=== PATIENT | female | born 1980 | race Caucasian/White ===

== ENCOUNTER 2025-04-29 18:30 | Inpatient (IN) | payer BC, SELFPAY ==
[2025-04-29] VITALS (25 sets, daily range): BP systolic 143–179; BP diastolic 78–106; BMI 33.0
[2025-04-29 11:17] LABS: Glucose - Point of Care 89 mg/dl (70-99)
--- NOTE | 2025-04-29 11:18 | ED.CVA ---
History of Present Illness
<Naseem Grande PA-C - Last Filed: 04/29/25 12:19>
General
Chief Complaint: CVA/TIA Symptoms
Source: patient
Exam Limitations: none
Time Seen by Provider: 04/29/25 11:17
Onset of Stroke Symptoms
Onset of symptoms known: Yes
Date of onset of symptoms: 04/29/25
History of Present Illness
History of Present Illness:
44-year-old female weaning off of [employer] I[employer]. and recently started tours appetite presents with the onset of right facial droop at 1045 this morning. This was preceded by not feeling well and somewhat off or dizzy. There was no vision change. She
denies fevers rash or headache. She denies any arm or leg numbness or weakness. She states she was having trouble speaking. No associated dizziness. No chest pain or shortness of breath. No other complaints at this time. I was asked to see the
patient in triage with a right facial droop. Stroke alert was called through triage
Phy Exam
<Naseem Grande PA-C - Last Filed: 04/29/25 12:19>
Physical Exam
Physical Exam:
General: Well-appearing female no acute respiratory distress
HEENT: Normal cephalic face is asymmetric. There is a subtle facial droop. Pupils equal round react light extract motion intact
Heart: Regular rate and rhythm lungs: Clear no wheeze
Neurologic exam: Alert and oriented x 3 normal gait finger-nose intact no drift on exam. There is a subtle right facial droop however the patient is able to wrinkle both sides of the forehead. No aphasia or dysarthria. Good sensation to the upper
and lower extremities.
Skin is warm no rash
Extremities: No cyanosis or edema
Course
<Naseem Grande PA-C - Last Filed: 04/29/25 12:19>
Orders/Labs/Results
Orders:
Orders
10/28/25 11:09
CT HEAD STROKE ALERT W/o Cont Urgent
Comment:
Reason For Exam: facial droop
04/29/25 11:16
Cardiovascular Evaluation Urgent
Complete Blood Count/With Diff Urgent
Comprehensive Metabolic Panel Urgent
Ferritin Urgent
Comment: ADDON
Folate Urgent
Comment: ADDON
Glycohemoglobin (HgbA1c) Urgent
Lyme Progressive Urgent
Magnesium Urgent
Comment: ADD ON
TSH Reflex To Free T4 Urgent
Comment: ADDON
Vitamin B12 Urgent
Comment: ADDON
04/29/25 11:22
CT HEAD/NECK ANG STROKE ALERT Urgent
Comment:
Reason For Exam: right facial droop
04/29/25 11:25
Electrocardiogram (*1) Urgent
Reason for Study: TIA/Stroke
EKG- Treatment ONCE
04/29/25 11:39
Add On- LAB Routine
Tests Added?: folate, ferritin, TSH reflex, B12, lipid panel, hbA1c
04/29/25 12:16
Aspirin 325 mg PO NOW STA
Clopidogrel Bisulfate [Plavix] 300 mg PO NOW STA
04/29/25 13:11
Admit/Transfer Patient As Directed
Co-Sign Provider:
Level of Care: Inpatient admission
Assign to:: Telemetry
Physician / Group: nay aparicio
Diagnosis: acute left frontal cva
Reason for Telemetry: CVA/TIA
Date to Stop Telemetry: 05/02/25
Time to Stop Telemetry: 11:00
Reason for Hospitalization: right facial numbness, htn urgency concern cva vs htn
Expected length of stay greater than two midnights?: Yes
ELOS- Estimated Length of Stay in days: 3
I certify the patient meets the requirements for IP care: Yes
Code Status As Directed
Resuscitation Status: Full Code
04/29/25 13:13
PRN Pain Medication Management As Directed
May give lesser potent ordered pain med per pt: Yes
preference::
Protocol:: Medication orders for pain may be administered in a
manner that supports deferring to patient preference
when the pt is:
- Requesting an ordered lesser potent pain medication.
Least to most potent pain medications are defined
as: acetaminophen < NSAID < tramadol < opioids
(morphine, oxycodone, hydromorphone).
- Requesting a lesser dose of the same medication IF
ORDERED.
- Requesting a less intrusive route of administration
if both routes are prescribed by the provider (PO <
IV).
04/29/25 13:14
Add On- LAB Urgent
Tests Added?: mag
Consult Neurology [NEUROLOGY CONSULT] Routine
Consulting Provider: Pranav Jacinto
Was physician already notified: Yes
Reason for consult: right facial numbness droop htn urgency
Acetaminophen [Tylenol] 1,000 mg PO NOW STA
04/29/25 14:24
MRI Brain [MR Brain Without Contrast] Urgent
Comment:
Reason For Exam: cva/tia
OK for patient to be off Cardiac Monitoring for MRI: Yes
Recent pill cam endoscopy?: No
04/29/25 Dinner
Regular
At Your Request: Full Participation
04/29/25 18:51
Activity As Directed
Activity Level: As Tolerated
Neurological Checks As Directed
Frequency: q4h
Pneumatic Compression Sleeves As Directed
Type: Knee high
Vital Signs As Directed
Frequency: Per unit guidelines
Pt Eval And Treat Routine
Activity Level: As Tolerated
Speech Therapy Eval & Treat Routine
DX Deep Vein Thrombosis Video Routine
04/29/25 19:00
Atorvastatin [Lipitor] 40 mg PO QPM
04/29/25 21:00
Acetaminophen [Tylenol] 650 mg PO Q4HPRN PRN
04/30/25 08:00
Aspirin Low Dose EC [Aspir Low (Enteric Coated)] 81 mg PO DAILY
Cholecalciferol (Vitamin D3) [VITAMIN D3 (cholecalciferol)] 25 mcg PO DAILY
Clopidogrel Bisulfate [Plavix] 75 mg PO DAILY
Duloxetine Delayed Release [Cymbalta Delayed Release] 30 mg PO DAILY
Multivitamin [Theragran] 1 tablet PO DAILY
Vitamin B Complex with C [B COMPLEX w/VITAMIN C] 1 caplet PO DAILY
05/02/25 11:00
DC Protocol for Telemetry ONCE
Abnormal Lab Results
04/29/25
11:16
MCHC 32.5 L g/dL
(33.0-37.0)
Monocytes % 9.7 H %
(1.7-9.3)
Total Cholesterol 206 H mg/dl
(50-199)
Folate > 20.0 H ng/ml
(2.76-20)
04/29/25 11:16
04/29/25 11:16
Vital Signs
Initial and Last Documented VS:
Initial Vital Signs
BP
179/93
04/29/25 11:12
Last Documented Vital Signs
Temp Pulse Resp BP Pulse Ox
98.5 F 91 17 125/91 99
05/01/25 07:00 05/01/25 08:02 05/01/25 07:00 05/01/25 08:02 05/01/25 07:00
<Lexi Woodward MD - Last Filed: 05/01/25 11:14>
Orders/Labs/Results
Orders:
Orders
04/29/25 11:09
CT HEAD STROKE ALERT W/o Cont Urgent
Comment:
Reason For Exam: facial droop
04/29/25 11:16
Cardiovascular Evaluation Urgent
Complete Blood Count/With Diff Urgent
Comprehensive Metabolic Panel Urgent
Ferritin Urgent
Comment: ADDON
Folate Urgent
Comment: ADDON
Glycohemoglobin (HgbA1c) Urgent
Lyme Progressive Urgent
Magnesium Urgent
Comment: ADD ON
TSH Reflex To Free T4 Urgent
Comment: ADDON
Vitamin B12 Urgent
Comment: ADDON
04/29/25 11:22
CT HEAD/NECK ANG STROKE ALERT Urgent
Comment:
Reason For Exam: right facial droop
04/29/25 11:25
Electrocardiogram (*1) Urgent
Reason for Study: TIA/Stroke
EKG- Treatment ONCE
04/29/25 11:39
Add On- LAB Routine
Tests Added?: folate, ferritin, TSH reflex, B12, lipid panel, hbA1c
04/29/25 12:16
Aspirin 325 mg PO NOW STA
Clopidogrel Bisulfate [Plavix] 300 mg PO NOW STA
04/29/25 13:11
Admit/Transfer Patient As Directed
Co-Sign Provider:
Level of Care: Inpatient admission
Assign to:: Telemetry
Physician / Group: nay aparicio
Diagnosis: acute left frontal cva
Reason for Telemetry: CVA/TIA
Date to Stop Telemetry: 05/02/25
Time to Stop Telemetry: 11:00
Reason for Hospitalization: right facial numbness, htn urgency concern cva vs htn
Expected length of stay greater than two midnights?: Yes
ELOS- Estimated Length of Stay in days: 3
I certify the patient meets the requirements for IP care: Yes
Code Status As Directed
Resuscitation Status: Full Code
04/29/25 13:13
PRN Pain Medication Management As Directed
May give lesser potent ordered pain med per pt: Yes
preference::
Protocol:: Medication orders for pain may be administered in a
manner that supports deferring to patient preference
when the pt is:
- Requesting an ordered lesser potent pain medication.
Least to most potent pain medications are defined
as: acetaminophen < NSAID < tramadol < opioids
(morphine, oxycodone, hydromorphone).
- Requesting a lesser dose of the same medication IF
ORDERED.
- Requesting a less intrusive route of administration
if both routes are prescribed by the provider (PO <
IV).
04/29/25 13:14
Add On- LAB Urgent
Tests Added?: mag
Consult Neurology [NEUROLOGY CONSULT] Routine
Consulting Provider: Pranav Jacinto
Was physician already notified: Yes
Reason for consult: right facial numbness droop htn urgency
Acetaminophen [Tylenol] 1,000 mg PO NOW STA
04/29/25 14:24
MRI Brain [MR Brain Without Contrast] Urgent
Comment:
Reason For Exam: cva/tia
OK for patient to be off Cardiac Monitoring for MRI: Yes
Recent pill cam endoscopy?: No
04/29/25 Dinner
Regular
At Your Request: Full Participation
04/29/25 18:51
Activity As Directed
Activity Level: As Tolerated
Neurological Checks As Directed
Frequency: q4h
Pneumatic Compression Sleeves As Directed
Type: Knee high
Vital Signs As Directed
Frequency: Per unit guidelines
Pt Eval And Treat Routine
Activity Level: As Tolerated
Speech Therapy Eval & Treat Routine
DX Deep Vein Thrombosis Video Routine
04/29/25 19:00
Atorvastatin [Lipitor] 40 mg PO QPM
04/29/25 21:00
Acetaminophen [Tylenol] 650 mg PO Q4HPRN PRN
04/30/25 08:00
Aspirin Low Dose EC [Aspir Low (Enteric Coated)] 81 mg PO DAILY
Cholecalciferol (Vitamin D3) [VITAMIN D3 (cholecalciferol)] 25 mcg PO DAILY
Clopidogrel Bisulfate [Plavix] 75 mg PO DAILY
Duloxetine Delayed Release [Cymbalta Delayed Release] 30 mg PO DAILY
Multivitamin [Theragran] 1 tablet PO DAILY
Vitamin B Complex with C [B COMPLEX w/VITAMIN C] 1 caplet PO DAILY
05/02/25 11:00
DC Protocol for Telemetry ONCE
Abnormal Lab Results
04/29/25
11:16
MCHC 32.5 L g/dL
(33.0-37.0)
Monocytes % 9.7 H %
(1.7-9.3)
Total Cholesterol 206 H mg/dl
(50-199)
Folate > 20.0 H ng/ml
(2.76-20)
04/29/25 11:16
04/29/25 11:16
Vital Signs
Initial and Last Documented VS:
Initial Vital Signs
BP
179/93
04/29/25 11:12
Last Documented Vital Signs
Temp Pulse Resp BP Pulse Ox
98.5 F 91 17 125/91 99
05/01/25 07:00 05/01/25 08:02 05/01/25 07:00 05/01/25 08:02 05/01/25 07:00
<Naseem Grande PA-C - Last Filed: 04/29/25 12:19>
MDM/Problems Addressed
Differential Diagnosis Includes:
Patient presented with right facial droop onset at 1045 this morning. Question TIA versus CVA versus Prince's palsy however not enough on my exam to call Rpince's palsy. Stroke alert called through triage. Reassessed patient in room facial droop
persisted. No blood thinners onset about 35 minutes ago however stroke scale at this point is low and 1 and likely not a TNK candidate. Discussed with emergency room attending. CT angio of the head and neck as well as plain CT of the head was
ordered
<Naseem Grande PA-C - Last Filed: 04/29/25 12:19>
*Pulse Oximetry
SaO2: 98
Oxygen Mode of Delivery: Room air
Patient hypoxic: no
*Critical Care Note
Total Time (30-74mins, 75-104mins- exclusive of procedures): Not Applicable
<Naseem Grande PA-C - Last Filed: 04/29/25 12:19>
Update Note
Update Note:
Patient seen and evaluated by the neurology team. Head CT was negative CT angio of the head and neck was added. Still with persistent right facial droop but no other deficits. Discussed with emergency room attending saw the patient as well.
Neurology recommended admitting the patient for further stroke workup as well as do antiplatelet therapy. Plavix and aspirin ordered. Hospitalist made aware
ED Attending Note
<Naseem Grande PA-C - Last Filed: 04/29/25 12:19>
-
Portions of this chart may have been created with voice recognition software.� Occasional wrong word or��sound alike� substitutions may have occurred due to the inherent limitations of voice recognition software.
<Lexi Woodward MD - Last Filed: 05/01/25 11:14>
ED Attending Note
Patient seen and examined by attending physician: Yes
I performed the substantive portion of visit, reviewed & personally made and approve the management plan that is documented in note by myself or PENELOPE.: Yes
ED Attending Note:
44-year-old female presents emergency department with right-sided facial droop that started approximately 1040 or 10:45 AM today. This is not associated with numbness, tingling, chest pain, neck pain, abdominal pain, focal weakness, visual changes,
or other complaints. On exam, patient has a mild facial droop without associated neurological symptoms. NIH equal to 1. Patient is not a TNK candidate given her low NIH score, nor is she a IAT candidate at this time. Patient seen with neurology
at the bedside. 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 Given upper face not affected Prince's palsy thought to be less likely.
Discharge Plan
Departure
Patient Disposition: Admit
Date of Disposition: 04/29/25
Time of Disposition: 12:19
Presentation/result/management discussed w/ accepting MD/DO: Hospitalist
Discharge Problem:
Acute right facial droop
Interventions
Interventions:
*Risk Screen - Suicide Last Done: 04/29/25 11:15
*General Assessment Last Done: 04/29/25 11:55
*Neglect/Abuse Screening Last Done: 04/29/25 11:15
*ED- Fall Risk Assessment Last Done: 04/29/25 11:55
*ED COVID-19 Vaccine History Last Done: 04/29/25 11:22
*ED Influenza Vaccine History Last Done: 04/29/25 11:22
*Nursing Disposition Last Done: 04/29/25 18:23
ED- Pulmonary Assessment Last Done: 04/29/25 11:54
ED- Neurological Assessment Last Done: 04/29/25 11:54
ED- Cardiac Assessment Last Done: 04/29/25 11:54
ED Swallowing Screen Last Done: 04/29/25 12:25
Discharge Date and Time
Discharge Date/Time: 04/29/25 18:23
[2025-04-29 11:27] LABS: Hematocrit 40.0 % (37.0-47.0); Hemoglobin 13.0 g/dL (12.0-16.0); Mean Corp Hgb Conc. 32.5 g/dL (33.0-37.0); Mean Corpuscular Volume 91.3 fL (81.0-99.0); Nucleated Red Blood Cells % 0 %; Platelet Count 290 10^3/uL (130-400); Red Cell Dist. Width 12.2 % (11.5-14.5)
--- NOTE | 2025-04-29 11:31 | CON.NEURO4 ---
Addendum entered and electronically signed by Pranav Jacinto MD 04/29/25 19:08:
I saw and examined the patient today. I also discussed the patient's assessment and the management plan with nurse practitioner Halina Foley. I agree with the assessment and the management plan by nurse practitioner Halina Foley. The
following is my addendum.
The patient is a 44 years old female with a past medical history of migraine with aura, hypertension which was untreated and anxiety, who presented to the ER with complaint of right-sided facial droop, right-sided facial numbness and headache. The
patient has a history of migraines. The patient's symptoms started at around 10:40 AM today and she complained of a facial droop on the right side and numbness of the right side of the mouth. The NIH stroke scale was 2. She reports having a 6/10
headache on the top of her head radiating down the back of her head.
Neurologic Examination:
The patient is alert and oriented x 3,
Speech is clear,
The cranial nerves II to XII are grossly intact aside from a mild right-sided facial droop,
The motor strength is grossly 5/5 bilaterally in the upper and lower extremities,
The sensations are grossly intact bilaterally in the upper and lower extremities except for a mildly decreased touch sensation in the right lower side of the face.
The cerebellar examination did not show any limb ataxia.
ASSESSMENT AND PLAN:
The patient is a 44 years old female who presented with right-sided facial droop and numbness of the right side of the lower face. The patient did not have any speech difficulty and focal numbness or weakness of the bilateral upper and lower
extremities. The CT of the head did not show any acute intracranial abnormality. The CTA of head and neck did not show a large vessel occlusion. She is not a candidate for TNK due to low NIHSS, and she is also not a candidate for IAT as there is no
LVO. She reports having a 6/10 headache on the top of her head radiating down the back of her head.
A detailed discussion was held with the patient and the patient's regarding the assessment and the management plan, and they verbalized understanding of our discussion. The patient and her refused TNK administration due to minor and
nondisabling symptoms.
MRI of the brain was done later that showed a 1.4 cm acute ischemic infarct in the posterior cortical bates matter of the left frontal lobe.
The report of the MRI of brain was discussed with the patient and her in detail and the patient was re-examined. On re-examination, the right-sided facial droop and right-sided facial numbness had resolved, and the patient said that she
does not have any symptom at this time.
The plan is to keep the patient on the stroke pathway. The patient was given a loading dose of aspirin 325 mg x 1 and Plavix 300 mg x 1. She is going to be on aspirin 81 mg daily and Plavix 75 mg daily. She was not on any antiplatelets at home
and the plan is to stop Plavix after 21 days and to continue with aspirin. She will also be on atorvastatin 40 mg daily.
Will follow.
Original Note:
Consultation - Neurology 4
-
CONSULTING PHYSICIAN: Pranav Jacinto MD
REFERRING PHYSICIAN: ER/Naseem Grande PA-C
DICTATED BY: OSVALDO Sousa
DATE/TIME OF REQUEST: 04/29/25
DATE/TIME OF CONSULTATION: 04/29/25
Reason for Consultation: Stroke Alert
History of Present Illness:
This is a 44-year-old female who has presented to the hospital with report of right facial numbness, right facial drooping, and headache. Patient reports that she was on duloxetine for about a year and about three weeks ago she started weaning off
of it. This morning (04/29/25), she reports feeling in her usual state but did feel mildly dizzy. Around 1040 she notes that the right side of her mouth started tingling and her right mouth appeared droopy, prompting her to come to the ER for
evaluation. Blood pressure on arrival was 165/100. CT head and CTA head/neck were obtained on arrival and are negative for any acute abnormalities. NIHSS is 2 for mild right mouth drooping and R facial paresthesias. She is not a candidate for
TNK/IAT due to low NIHSS, no LVO. She reports having a 6/10 headache on the top of her head radiating down the back of her head. She denies nausea and photo/phonophobia. She reports a significant history of migraine headaches associated with visual
aura, but her current headache does not feel like her typical headache. She denies any stroke symptoms with her previous headaches. She is not taking any estrogen supplements or hormonal control.
Past Medical History: Migraine with aura, iron deficiency anemia, preeclampsia, anxiety
Surgical History: Gastric bypass, breast implants, hernia repair, eye surgery.
Family History: Grandmother- stroke in an older decade of life.
Social History: Denies tobacco, alcohol, and illicit drug use.
Allergies: Penicillins, vancomycin.
Home Medications: See below.
Review of Symptoms:
Patient denies any fever, headache, chest pain, shortness of breath, GI or symptoms.
�Per the HPI.�All systems are reviewed negative except above.
Physical Exam:
The patient is afebrile, abdomen is nondistended, breathing is unlabored, skin is warm and dry, no edema.
NIH Stroke Scale:
I performed the NIH stroke scale on the patient on 04/29/25 at 1100. The patient scored 2 points on the NIH stroke scale assessment, which were assigned as follows: See below.
Neurologic Examination:
The patient is awake, alert and oriented x 3. She is able to follow commands and answer questions appropriately. There is no aphasia or dysarthria. On cranial nerve assessment, pupils are 3 mm bilateral, round and reactive to light and
accommodation. Visual abel are full. Extraocular movements are intact. There is mild right mouth drooping. Hearing is intact bilaterally to normal conversation volume. Tongue palate and uvula are midline. Sternocleidomastoid strengths are full
bilaterally. Motor strengths are 5/5 bilateral upper and lower extremities on medical research Drummonds scale. There is no drift or involuntary movement noted. Sensations of touch are mildly decreased in the right lower face. There was no extinction
noted on double simultaneous stimulation. Coordination is intact by finger to nose bilaterally.
Lab Results: See below.
Neuro Imaging:
1. CT Head 04/29/25: No acute intracranial abnormality. ASPECT score: 10.
2. CTA head/neck 04/29/25: No demonstrable carotid arterial atherosclerosis/stenosis bilaterally. No findings to suggest internal carotid artery or vertebral artery dissection bilaterally. Vertebral arteries are approximately codominant. No findings
to suggest proximal intracranial arterial stenosis or vessel cut off bilaterally.
Differentials for the patient's presentation include:
1. Right mouth drooping and right facial paresthesias; etiology is possibly a complex migraine given current headache, versus anxiety, hypertension, and cannot entirely exclude a small ischemic stroke.
Patient has the following risk factors for their symptoms: HTN, anxiety, migraine with aura
IV Tenecteplase/IAT candidacy: NIHSS is 2 for mild right mouth drooping and R facial paresthesias. She is not a candidate for TNK/IAT due to low NIHSS, no LVO.
Recommendations:
-Provide a loading dose of aspirin 325mg and clopidogrel 300mg x1. Continue DAPT with aspirin 81mg and clopidogrel 75mg daily for now.
-MRI brain noncontrast pending.
-Permissive hypertension SBP<220, DBP<120 until 04/30/25 at 1040.
-Checking blood work for metabolic abnormalities.
-NIHSS and neurological checks per unit guidelines.
-Provide patient/family with a stroke education packet.
-DVT prophylaxis.
Discussed patient care with: Dr. Jacinto, the patient, patient's spouse
Vital Signs and Labs
-
Vital Signs and Labs:
Vital Signs
Temp Pulse Resp BP Pulse Ox
98 F 105 18 156/100 99
04/29/25 11:15 04/29/25 11:45 04/29/25 11:45 04/29/25 12:31 04/29/25 12:31
Lab Results
04/29/25 11:16
04/29/25 11:16
Sodium 135 mmol/L (135-145) 04/29/25 11:16
Potassium 4.4 mmol/L (3.5-5.1) 04/29/25 11:16
BUN 11 mg/dl (7-17) 04/29/25 11:16
Glucose 92 mg/dl (70-99) 04/29/25 11:16
Calcium 9.2 mg/dl (8.4-10.2) 04/29/25 11:16
LDL Cholesterol, Calc 100 mg/dl 04/29/25 11:16
Medications
-
Home Medications
�Medication �Instructions �Recorded
cholecalciferol (vitamin D3) 25 25 mcg PO DAILY Supplement 04/29/25
mcg (1,000 unit) tablet (Vitamin
D3)
nerryzhjon-wvyvojtmgrrpwee-buitccgcuhqlqidf-acetaminophen 1 cap PO HSPRN PRN sleep 04/29/25
capsule
duloxetine 30 mg capsule,delayed 30 mg PO DAILY Mental 04/29/25
release Health/Anxiety
ibuprofen 200 mg tablet (Advil) 400 mg PO Q8HPRN PRN mild pain 04/29/25
therapeutic multivitamin 1 tab PO DAILY Supplement 04/29/25
vitamin B complex 1 tab PO DAILY Supplement 04/29/25
NIH Stroke Score
Subsequent NIH Scale
Date of Subsequent NIH Scale: 04/29/25
Time of Subsequent NIH Scale: 11:00
NIH Stroke Score
Level of Consciousness: 0 - Alert
LOC Questions: 0-Answers both correctly
LOC Commands: 0-Performs both correctly
Best Horizontal Gaze: 0-Normal
Visual Abel: 0=Normal, no visual loss
Facial Palsy: 1=Minor paralysis
Motor - Right Arm: 0=No drift 10 seconds
Motor - Left Arm: 0=No drift 10 seconds
Motor - Right Le-No drift 5 seconds
Motor - Left Le-No drift 5 seconds
Limb Ataxia: 0-Absent
Sensation: 1-Mild loss
Best Language: 0-No aphasia
Dysarthria: 0-Normal
Extinction and Inattention: 0-No abnormality
NIH Total Score:: 2
Modified [place] (mRS) Score
Modified [place] Scale (mRS): No significant disability. Able to carry out usual activities.
Score: 1
Alteplase Contraindication
Inclusion and Exclusion criteria reviewed: Yes
IAT Contraindications: Imaging doesn't show large vessel occlusion as cause of stroke
[2025-04-29 11:54] LABS: ALT (SGPT) 31 U/L (0-35); AST (SGOT) 33 U/L (14-36); Albumin 4.9 g/dl (3.5-5.0); Alkaline Phosphatase 44 U/L (38-126); Blood Urea Nitrogen 11 mg/dl (7-17); Calcium 9.2 mg/dl (8.4-10.2); Carbon Dioxide 25 mmol/L (22-30); Chloride 101 mmol/L (98-107); Glucose 92 mg/dl (70-99); Potassium 4.4 mmol/L (3.5-5.1); Sodium 135 mmol/L (135-145); Total Protein 7.9 g/dl (6.3-8.2); eGFR > 60.00
--- NOTE | 2025-04-29 12:21 | W.PN.UPDATE ---
Addendum entered and electronically signed by Mehul Dubose MD 04/30/25 08:15:
04/29/25 Urgent Brain MRI
1. 1.4 cm ACUTE ISCHEMIC INFARCT in the posterior cortical bates matter of the LEFT FRONTAL LOBE.
2. Mild white matter disease in the parietal lobes and minimal white matter disease in the frontal lobes which is most likely white matter leukoaraiosis or the sequela of migraine headaches. Vasculitis, connective tissue disease, Lyme disease, or
demyelinating disease are less likely diagnostic possibilities.
Case d/w Patient and , [employer]
Await Neuro consult for further w/u
c/w DAPL
Original Note:
Update Note
Progress Note Update
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
[place]
HPI
44F weaning off of Cymbalta and recently started tours appetite seen at ER
- straoke alert
- new onset of R facial droop at 1045 this morning
- was preceded by not feeling well and somewhat off or dizzy.
- no vision change.
- denies fevers rash or headache.
- denies any arm or leg numbness or weakness.
- states she was having trouble speaking.
ROS
- No associated dizziness. No chest pain or shortness of breath. No other complaints at this time.
- Stroke alert was called through triage
- Denied tick bite
Relevant VS
04/29/25
11:15
Temp 98 F
Pulse 108
Resp Rate 16
Blood pressure 155/78
SaO2 98
Oxygen Mode of Delivery Room air
PE
Gen: NAD
HEENT: subtle Lt facial droop. Nl speech. Able to wrinkle both sides of the forehead.
Neck: supple
Lungs: CTA
Cor: RRR S1 s2
Abdomen:�benign
SOCK LINING EXAMINER:
Nl speech. Able to wrinkle both sides of the forehead
No aphasia or dysarthria. Good sensation to the upper and lower extremities.
MS: no edema
Relevant Data
04/29/25
11:16
WBC 6.0
Hgb 13.0
Plt Count 290
Sodium 135
Potassium 4.4
Creatinine 0.6
eGFR > 60.00
Hemoglobin A1c Pending
Ferritin Pending
Albumin 4.9
LDL Cholesterol, Calc Pending
EKG
NORMAL SINUS RHYTHM
RIGHT AXIS DEVIATION
LOW VOLTAGE QRS
ABNORMAL ECG
WHEN COMPARED WITH ECG OF 25-Mar-2023 16:28,
QRS AXIS SHIFTED RIGHT
NONSPECIFIC T WAVE ABNORMALITY NOW EVIDENT IN INFERIOR LEADS
T WAVE INVERSION NOW EVIDENT IN LATERAL LEADS
HCT
No acute intracranial abnormality.
H & N CTA
No demonstrable carotid arterial atherosclerosis/stenosis bilaterally.
No findings to suggest internal carotid artery or vertebral artery dissection bilaterally. Vertebral arteries are approximately codominant.
No findings to suggest proximal intracranial arterial stenosis or vessel cut off bilaterally.
NO PRIOR hospitalist admission:
ASSESSMENT & PLAN
Stroke alert for sudden onset subtle Lt facial droop - DDX: TIA/CVA vs. Prince's palsy
- onset: 10:45 today.
- Called stroke alert through triage
- NEG HCT. NEG H & N CTA
- start DAPT and cont.
- Brain MRI
- A1C, Lipids
- Neurologist consult
Borderline elevated BP
HX Essential HTN
- permissive BP while w/u for TIA/CVA
- IV Hydralazine PRN if SBP> 220 , DBP > 110
- OP FU BP with PCP
Recent HX allergic rash reactions to Wellbutrin indicated for Wt loss
Obesity
- stopped Wellbutrin and teated with systemic and topical steroids
- resolved diffuse rash with Steroids
DVT Px: SCD
Full code
OBS TLM
--- NOTE | 2025-04-29 12:28 | HPS.HSE ---
Family Physician
-
Family Physician: Eulalio Pritchett
Chief Complaint
-
Headache, reported right-sided facial droop with numbness, hypertension
History of Present Illness
44-year-old female states at 1040 this a.m. she was helping her daughter get off of a toilet over at her friend's house she started to feel a thick fullness in the right corner of her mouth as if it was swollen but was not. She also reports daily
chronic headaches had headache this a.m. and currently frontal head radiating straight to the back. She appears to have left side facial droop although reports symptoms in the right corner of her mouth. She also complains of occasional dizziness
she denies blurred vision, chest pain, palpitations, cough, shortness of breath, abdominal pain, nausea, vomiting, diarrhea, urinary symptoms, tick bites. She recently came off of steroids 2 weeks ago due to hives from Wellbutrin. She is noted to
be hypertensive in the ER 162/100 with history of borderline hypertension at PCP office 130 systolic that has always come down. There is no family history of strokes however strong family history of hypertension maternal/paternal grandparents,
mother, father. She is only child
She has past medical history iron deficiency anemia, gastric bypass, anxiety, daily headaches
Medical History
Past Medical History
Past Medical History: Reports Other
Additional Past Medical History:
iron deficiency anemia
gastric bypass
anxiety
daily headaches
Past Surgical History: Reports Other
Additional Past Surgical History:
Hernia repair 2011
Breast implants 2011
Eye surgery 2016
Social History
Tobacco: Non-smoker
Alcohol: None
Drug: None
Personal:
Living: With Family
Employment: Employed ([id number] mom)
Family History
Family History: Other (Hypertension mother, father, maternal grandparents, paternal grandparents)
Allergies / Home Medications
Allergies reflects when Allergies were last updated in [facility].
Home Medications with original date entered in [facility]
Allergy/Medication List:
Allergies
Allergy/AdvReac Type Severity Reaction Status Date / Time
bupropion (From Wellbutrin) Allergy Intermediate Rash Verified 04/29/25 12:21
Penicillins Allergy Intermediate Hives Verified 04/29/25 11:15
vancomycin Allergy Unknown Unknown Verified 04/29/25 11:15
Home Medications
cholecalciferol (vitamin D3) 25 mcg (1,000 unit) tablet (Vitamin D3) 25 mcg PO DAILY Supplement 04/29/25
rfympdssde-cytbrshufkwrxrb-woszlufzbycezxpt-acetaminophen capsule 1 cap PO HSPRN PRN sleep 04/29/25
duloxetine 30 mg capsule,delayed release 30 mg PO DAILY Mental Health/Anxiety 04/29/25
ibuprofen 200 mg tablet (Advil) 400 mg PO Q8HPRN PRN mild pain 04/29/25
therapeutic multivitamin 1 tab PO DAILY Supplement 04/29/25
vitamin B complex 1 tab PO DAILY Supplement 04/29/25
Review of Systems
-
History Source: Patient and Family ( at bedside)
A 12 point ROS was completed and negative except as noted: Yes
Constitutional: Denies Fever, Fatigue or Chills
EENT: Reports Other (Reported tingling, fullness right corner of mouth however on exam appears to have left corner mouth drooping); Denies Sore Throat or Runny Nose
Respiratory: Denies Cough, Hemoptysis or Trouble Breathing
Cardiac: Denies Chest Pain, Diaphoresis or Palpitations
Abdomen/GI: Denies Abdominal Pain, Nausea, Vomiting, Diarrhea, Constipated or Bloody Stools
: Denies Dysuria, Frequency, Flank Pain, Incontinence, Difficulty Voiding or Urgency
Musculoskeletal: Denies Joint Pain or Edema
Skin: Denies Itching or Rash
Neurological: Reports Dizzy (On and off) and Headache (Frontal towards back); Denies Weakness
Endocrine: Reports No Symptoms
Hematologic/Lymphatic: Reports No Symptoms
Psych: Reports Calm
Physical Exam
Vital Signs
Vital Signs
Temp Pulse Resp BP Pulse Ox
98 F 96 20 155/78 97
04/29/25 11:15 04/29/25 11:18 04/29/25 11:18 04/29/25 11:15 04/29/25 11:54
Physical Exam
General: No Fever or Chills
HEENT: NormoCephalic, Anicteric, Moist mucous membranes, PERRLA, [place] Conjunctivae, No Ptosis, Neck Nontender and Other (Reported tingling, fullness right corner of mouth however on exam appears to have left corner mouth drooping)
Respiratory: Clear; No Wheezes, Rales or Rhonchi
Cardiac: S1/S2 and Regular Rhythm; No Murmur, Rub, Gallop or Peripheral Edema
Breast: Deferred by me
GI: Soft, Non Tender, Non Distended, Normal Bowel Sounds and No Hepatosplenomegaly
Rectal: Deferred by Provider
Genito-urinary: Deferred by me
Musculoskeletal: No Clubbing, No Cyanosis and No Edema
Skin: Warm and Dry; No Rash or Jaundice
Neuro: AO x 3, No Motor Deficits, Nonfocal/grossly intact, Cranial Nerves Intact, No Sensory Deficits and Facial Droop (Subtle left-sided corner of); No Slurred Speech, Tremors or Sedated
Psych: Calm
Laboratory Results
-
04/29/25 11:16
04/29/25 11:16
Laboratory Results
Total Bilirubin 0.8 mg/dl (0.2-1.3) 04/29/25 11:16
AST 33 U/L (14-36) 04/29/25 11:16
ALT 31 U/L (0-35) 04/29/25 11:16
Alkaline Phosphatase 44 U/L (38-126) 04/29/25 11:16
Impression/Plan
-
Impression/plan:
Observation telemetry
#Right facial droop concerning for CVA/TIA versus hypertensive urgency
Symptoms started 1030 this a.m. on 04/29/2025
BP 162/100
- Consult neurology
- MRI brain
- Aspirin 325 given in ER continue aspirin 81 mg daily
- Plavix 300 mg now, Plavix 75 mg x 21 days
- Check HgbA1c, lipid profile
Lyme, B12-
-Will allow permissive hypertension x 24 hours
- PT/OT/speech/case management consult
Head and neck CTA: No carotid arterial atherosclerosis/stenosis bilaterally no internal carotid or vertebral artery dissection no intracranial arterial stenosis or vessel cutoff bilaterally
EKG: NSR 88 bpm, QTc 452 MS T wave abnormality inferior leads and lateral leads T wave inversion(leads I and aVL)
#History chronic daily headaches x 15 years
Patient has not been treated by PCP
Takes occasional Advil 400 mg last dose was 11 PM yesterday 04/28/2025
- Advised patient to follow-up with PCP for migraine treatment given she has daily headaches
#Iron deficiency anemia
Hgb 13, MCV 91.3
#History of gastric bypass 2009
#Anxiety
Continue duloxetine 30 mg daily
DVT prophylaxis
SCDs
Full code
[2025-04-29 12:29] LABS: HDL Cholesterol 84 mg/dl; LDL Cholesterol, Calculated 100 mg/dl; Very Low Density Lipoprotein 22 mg/dl (0-30)
[2025-04-29] MEDS: ASPIRIN 325 MG PO (12:29)
[2025-04-29] MEDS: PLAVIX 300 MG PO (12:29)
[2025-04-29 12:58] LABS: Glycohemoglobin (HgbA1c) 5.4 % (4.0-5.9)
[2025-04-29 13:05] LABS: Ferritin 20.9 ng/ml (6.24-137)
[2025-04-29] MEDS: TYLENOL 1000 MG PO (13:28)
[2025-04-29 13:36] LABS: Folate > 20.0 ng/ml (2.76-20); Vitamin B12 376 pg/ml (239-931)
[2025-04-29 13:47] LABS: Magnesium 2.1 mg/dl (1.6-2.3)
--- NOTE | 2025-04-29 14:30 | EDCM ---
CM reviewed chart and spoke with patient and her Aric
CM attempted to do IA and review OBS status but got upset about OBS status vs inpatient status
He stated that 'unless you guys admit her under inpatient status, I am taking her home'
CM spoke with Mehul Chen and DANIELLA. Lori Acosta about 's concern
Dr. Dubose, DANIELLA Sandoval and SERGIO spoke with at patient's bedside
Dr. Dubose stated that LOC is OBS and it cannot be changed at this time.
stated 'it is all of your scam. YOU NEED TO HAVE MRI DONE NOW' Declined to sign OBS form
CM unable to completed IA at this time.
, SERGIO and ED charge nurse Maranda discussed that is agreeable with MRI of brain
CM will continue to discuss dcp needs when able.
--- NOTE | 2025-04-29 18:53 | PTCARENOTE ---
pt arrived to unit via w/c from ER. denies complaints, left facial droop resolved, independent, vss, will continue to monitor.
[2025-04-29] MEDS: LIPITOR 40 MG PO (20:16)
[2025-04-29] MEDS: TYLENOL 650 MG PO (22:03)
[2025-04-30 03:00] VITALS: BP 148/86
[2025-04-30 07:00] VITALS: BP 144/87
[2025-04-30] MEDS: VITAMIN D3 (cholecalciferol) 25 MCG PO (07:28)
[2025-04-30] MEDS: CYMBALTA DELAYED RELEASE 30 MG PO (07:28)
[2025-04-30] MEDS: PLAVIX 75 MG PO (07:28)
[2025-04-30] MEDS: THERAGRAN 1 TABLET PO (07:28)
[2025-04-30] MEDS: B COMPLEX w/VITAMIN C 1 CAPLET PO (07:28)
[2025-04-30] MEDS: ASPIR LOW (ENTERIC COATED) 81 MG PO (07:28)
--- NOTE | 2025-04-30 09:34 | W.PN.HOSP.TC ---
Today's Communication/Plan
-
see PN
Assessment / Plan
Assessment / Plan
44yo F with PMHX of HTN in young age, MVP, daily headaches, ocular migraine, gastric bypass came with acute onset of R face numbness and drooping, later partially resolved. Also subjective weakness in RUE and RLE. MRI showed acute stroke on L
frontal lobe. She is not a candidate for TNK due to low NIHSS, and she is also not a candidate for IAT as there is no LVO. CTA without carotid stenosis. Telemetry with episodic sinus tachycardia.
A/P:
#Acute CVA
#Mild white matter disease in the parietal lobes and minimal white matter disease in the frontal lobes
telemetry
ASA, plavix for 21 days, statin
LDL 100
TSH WNL
HgbA1c 5.4%
Permissive HTN first 24h
Echo with bubble study
NEurology to follow
Lyme serology pending
Reasonable outpatient rheumatologic W/U and loop recorder
#Anxiety d/o
#Obesity BMI 33.0%
reduce calorie intake
In process of weaning off Cymbalta, since weight gain of 35lbs occured after initiation of the drug
#KATHE
2/2 gastric bypass
followed by with intermittent iron infusions
DVT ppx SCDs
Full code
I have spent 60min reviewing chart, test results, communication with consultants, family and providing direct patient care
Anticipated Discharge: Within 24 hours
Subjective/Interval History
-
Date of Service: April 30, 2025
Objective Data
-
Vital Signs:
Vital Signs
Temp Pulse Resp BP Pulse Ox
98.3 F 81 17 144/87 100
04/30/25 07:00 04/30/25 07:00 04/30/25 07:00 04/30/25 07:00 04/30/25 08:00
I&O
04/29/25 04/30/25 05/01/25
06:59 06:59 06:59
Intake Total 480 / 480
Balance 480 / 480
Review of Systems
-
History Source: Patient
All other systems: Reviewed and negative
Neuro: Reports Other (subjective RUE and LUE weakness, some residual R perioral numbness)
Physical Exam
-
General: No Apparent Distress
HEENT: Normocephalic
Respiratory: Clear to Auscultation
Cardiac: Regular Rhythm and Tachycardic
GI: Soft, Nontender and Nondistended
Musculoskeletal: No Clubbing, No Cyanosis and No Edema
Neuro: Other (R lower facial droop, mild, RUE drift)
--- NOTE | 2025-04-30 10:15 | PTOTSP ---
Speech Language Pathology
Pt seen for cognitive-linguistic and speech evaluations. No dysarthria noted, although when completing bilabial diadochokinetic (DDK) rates, decreased movement of R lips noted. Pt reported she says some sounds strangely at times since admission,
such as 'f.' Pt was 100% intelligible in both known and unknown contexts.
Cognitive-linguistic evaluation completed via the [place] Cognitive Assessment (MOCA), version 8.2. Pt with a score of 26/30. Normal range is 26-30; however, given pt age and acute R frontal stroke, do not suspect this is her baseline.
Handout on higher level cognitive deficits post CVA in addition to brochure for outpatient provided as needed. CERTIFIED REGISTERED LOCKSMITH to continue to follow while in hospital.
[2025-04-30 11:00] VITALS: BP 161/99
--- NOTE | 2025-04-30 13:20 | CON.CAR ---
Addendum entered and electronically signed by Camilo Hauser MD 04/30/25 16:51:
I saw and evaluated the patient, and I provided the substantive portion of the medical decision making.
I reviewed and agree with the note by OSVALDO Zuniga and it accurately reflects our care.
I personally performed the medical decision making of the this encounter and my assessment and plan is below:
Her PFO by size is lacunar by size by some criteria. Need neuro opinion on if this small vessel HTN lacunar for which PFO closure might not be the answer.
We will acquire more information with DANISH and plan outpatient telemetry.
Goal BP < 120/ <80 is appropriate
LDL goal less than 70 is appropriate.
Reviewed all this with and pt.
Original Note:
Consultation
Consultation Request
Date/Time Consultation Requested: 04/30/25 1052
Date/Time Consultation Performed: 04/30/25 1145
Requesting Provider: Dr. Robbins
Performing Provider: Barbie RILEY for Dr. Hauser
Reason for Consultation: PFO, stroke, eval for DANISH
Medical History
-
Chief Complaint: right-sided facial droop
History of Present Illness:
44 y/o female with obesity with history of gastric bypass 13 years ago with iron-deficient anemia requiring intermittent transfusions, anxiety, depression, hx HTN (not on meds, improved after gastric bypass), migraine who is here because yesterday
AM around 1045 AM, she developed right-sided facial droop and difficulty speaking. Also with some right-sided weakness. MRI revealed acute ischemic infarct in the posterior cortical bates matter of the left frontal lobe. Echo shows PFO. She is in no
distress at the time of my assessment. at bedside.
Past Medical History
Past Medical History: HTN and Other (as above)
Social History
Tobacco: Non-Smoker
Alcohol: Occasional
Drug: None
Personal:
Living: With Family
Family History
Family History: Early CAD (dad doed age 57 pulmonary edema, hx CO) and Hypertension (mom)
Allergies / Home Medications
Allergy/AdvReac Type Severity Reaction Status Date / Time
bupropion (From Wellbutrin) Allergy Intermediate Rash Verified 04/29/25 12:21
Penicillins Allergy Intermediate Hives Verified 04/29/25 11:15
vancomycin Allergy Unknown Unknown Verified 04/29/25 11:15
�Medication �Instructions �Recorded �Confirmed �Type
cholecalciferol (vitamin D3) 25 25 mcg PO DAILY Supplement 04/29/25 04/29/25 History
mcg (1,000 unit) tablet (Vitamin
D3)
hujtsgtiiy-izherumzjaojkyk-yzjtkdjbvojclhnx-acetaminophen 1 cap PO HSPRN PRN sleep 04/29/25 04/29/25 History
capsule
duloxetine 30 mg capsule,delayed 30 mg PO DAILY Mental 04/29/25 04/29/25 History
release Health/Anxiety
ibuprofen 200 mg tablet (Advil) 400 mg PO Q8HPRN PRN mild pain 04/29/25 04/29/25 History
therapeutic multivitamin 1 tab PO DAILY Supplement 04/29/25 04/29/25 History
vitamin B complex 1 tab PO DAILY Supplement 04/29/25 04/29/25 History
Review of Systems
-
History Source: Patient
All other systems: Negative unless noted
Neurological: Other (as noted in detail in HPI)
Physical Exam
Vital Signs
Temp Pulse Resp BP Pulse Ox
98.6 F 87 17 161/99 97
04/30/25 11:00 04/30/25 11:00 04/30/25 11:00 04/30/25 11:00 04/30/25 11:00
Lab Results
04/29/25 11:16
04/29/25 11:16
Physical Exam
General: Well Developed, Well Nourished and No Apparent Distress
HEENT: Normocephalic and Anicteric
Respiratory: Clear and Non Labored Respirations
Musculoskeletal: No Edema
Skin: Warm and Dry
Neuro: AO x 3
Psych: Calm
Impression / Plan
-
Stroke:
-this diagnosis is threat to bodily function
-neurology is on the case
-tele and EKG show SR
-discussed with interventional cardiology: plan for DANISH tomorrow. Will arrange 2 week OP monitor and follow-up in our office for PFO closure consult if neuro agrees this is appropriate. Will also need OP hematology lab tests.
-currently on ASA, Plavix, statin
-BP management as below
Dyslipidemia:
-LDL 100
-now on statin
HTN:
-neuro note reviewed and permissive HTN goal over now.
-will add ARB/CCB and monitor
Data:
MRI, brain- 04/29/25: ACUTE ISCHEMIC INFARCT in the posterior cortical bates matter of the LEFT FRONTAL LOBE. Mild white matter disease in the parietal lobes and minimal white matter disease in the frontal lobes which is most likely white matter
leukoaraiosis or the sequela of migraine headaches. Vasculitis, connective tissue disease, Lyme disease, or demyelinating disease are less likely diagnostic possibilities.
Data Reviewed
-
EKG: Tracing Personally Visualized and interpreted (NSR- arm lead reversal suspected will repeat)
MRI: Report Reviewed by me (MRI as noted)
Medical Tests (Nuc Med, Echo etc): Report Reviewed by me (Echo 04/30/25: 1. Positive bubble study for right to left shunting at the level of the fossa ovalis consistent with PFO. 2. Normal biventricular size and systolic function. 3. No
significant valve disease. 4. No prior study available for comparison.)
Labs: Labs Reviewed by me
[2025-04-30] MEDS: TYLENOL 650 MG PO (13:23)
[2025-04-30 15:00] VITALS: BP 148/87
--- NOTE | 2025-04-30 16:03 | CM ---
Alert awake oriented patient who lives with her nolan Corbett and 3 children in a 2 story home with 0 steps to enter and 12 steps to bed/bathroom. She is independent in activates of daily living.She does drive .She declined VN when
offered.Pt aware she is inpatient.
No VN in past . No SNF hx
Pharmacy [facility]
PCP Dr Funez
PLAN Home with no needs
--- NOTE | 2025-04-30 16:08 | W.PN.NEURO.1 ---
Today's Communication / Plan
-
. MRI of the brain was done later that showed a 1.4 cm acute ischemic infarct in the posterior cortical bates matter of the left frontal lobe.
. The Transthoracic echocardiogram was done today that showed positive bubble study for right to left shunting at the level of the fossa ovalis consistent with PFO.
. Cardiology consult was obtained and a DANISH is planned for tomorrow.
. Today, she does not have a facial droop and there is no gross focal weakness, also her speech is clear, however, she does report mild numbness of the right side of the mouth. NIHSS = 1.
. The patient is going to be on aspirin Plavix and statin.
. Continue Norvasc and Valsartan.
A detailed discussion was held with the patient and her who was present at the bedside, regarding the assessment and the management plan, and they verbalized understanding of our discussion. The patient and the patient's want to go
ahead with DANISH as planned.
Subjective/Objective
Subjective Data
Date of Service: April 30, 2025
I saw and examined the patient today.
The patient is a 44 years old female with a past medical history of migraine with aura, hypertension which was untreated and anxiety, who presented to the ER with complaint of right-sided facial droop, right-sided facial numbness and headache. The
patient has a history of migraines. The patient's symptoms started at around 10:40 AM on 04/29/2025, and she complained of a facial droop on the right side and numbness of the right side of the mouth. The NIH stroke scale was 2. She reported
having a 6/10 headache on the top of her head radiating down the back of her head.
Today, she does not have a facial droop and there is no gross focal weakness, also her speech is clear, however, she does report mild numbness of the right side of the mouth. NIHSS = 1.
Neurologic Examination:
The patient is alert and oriented x 3,
Speech is clear,
The cranial nerves II to XII are grossly intact ,
The motor strength is grossly 5/5 bilaterally in the upper and lower extremities,
The sensations are grossly intact bilaterally in the upper and lower extremities except for a mildly decreased touch sensation on the right side of the face.
The cerebellar examination did not show any limb ataxia.
ASSESSMENT AND PLAN:
The patient is a 44 years old female who presented with right-sided facial droop and numbness of the right side of the lower face. The patient did not have any speech difficulty and focal numbness or weakness of the bilateral upper and lower
extremities. The CT of the head did not show any acute intracranial abnormality. The CTA of head and neck did not show a large vessel occlusion. She was not a candidate for TNK due to low NIHSS, and she is also not a candidate for IAT as there is
no LVO. She reported having a 6/10 headache on the top of her head radiating down the back of her head. She has a history of migraine with aura.
. MRI of the brain was done later that showed a 1.4 cm acute ischemic infarct in the posterior cortical bates matter of the left frontal lobe.
. The transthoracic echocardiogram was done today that showed positive bubble study for right to left shunting at the level of the fossa ovalis consistent with PFO.
. Cardiology consult was obtained and a DANISH is planned for tomorrow.
. Today, she does not have a facial droop and there is no gross focal weakness, also her speech is clear, however, she does report mild numbness of the right side of the mouth. NIHSS = 1.
. The patient is going to be on aspirin Plavix and statin.
. Continue Norvasc and Valsartan.
A detailed discussion was held with the patient and her who was present at the bedside, regarding the assessment and the management plan, and they verbalized understanding of our discussion. The patient and the patient's want to go
ahead with DANISH as planned.
Objective Data
Vital Signs
Temp Pulse Resp BP Pulse Ox
37.1 C 97 17 148/87 97
04/30/25 15:00 04/30/25 15:00 04/30/25 15:00 04/30/25 15:00 04/30/25 15:00
Lab Results
04/29/25 11:16
04/29/25 11:16
Sodium 135 mmol/L (135-145) 04/29/25 11:16
Potassium 4.4 mmol/L (3.5-5.1) 04/29/25 11:16
BUN 11 mg/dl (7-17) 04/29/25 11:16
Glucose 92 mg/dl (70-99) 04/29/25 11:16
Calcium 9.2 mg/dl (8.4-10.2) 04/29/25 11:16
LDL Cholesterol, Calc 100 mg/dl 04/29/25 11:16
Vitamin B12 376 pg/ml (239-931) 04/29/25 11:16
Patient Allergies
bupropion (From Wellbutrin) Allergy (Intermediate, Verified 04/29/25 12:21)
Rash
Penicillins Allergy (Intermediate, Verified 04/29/25 11:15)
Hives
vancomycin Allergy (Unknown, Verified 04/29/25 11:15)
Unknown
Vital Signs and Labs
-
Vital Signs and Labs:
Vital Signs
Temp Pulse Resp BP Pulse Ox
37.1 C 97 17 148/87 97
04/30/25 15:00 04/30/25 15:00 04/30/25 15:00 04/30/25 15:00 04/30/25 15:00
Lab Results
04/29/25 11:16
04/29/25 11:16
Sodium 135 mmol/L (135-145) 04/29/25 11:16
Potassium 4.4 mmol/L (3.5-5.1) 04/29/25 11:16
BUN 11 mg/dl (7-17) 04/29/25 11:16
Glucose 92 mg/dl (70-99) 04/29/25 11:16
Calcium 9.2 mg/dl (8.4-10.2) 04/29/25 11:16
LDL Cholesterol, Calc 100 mg/dl 04/29/25 11:16
Vitamin B12 376 pg/ml (328-931) 04/29/25 11:16
Medications
-
Active Medications
Generic Name Dose Route Start Last Admin
Trade Name Freq PRN Reason Stop Dose Admin
Acetaminophen 650 mg 04/29/25 21:00 04/30/25 13:23
Acetaminophen 325 Mg Tablet PO 05/27/25 20:59 650 mg
Q4HPRN PRN Administration
mild pain/PASTRANA/temp> 100.4F
Amlodipine Besylate 2.5 mg 04/30/25 15:00 04/30/25 16:16
Amlodipine 2.5 Mg Tablet PO 05/28/25 14:59 2.5 mg
DAILY JAVON Administration
Aspirin 81 mg 04/30/25 08:00 04/30/25 07:28
Aspirin 81 Mg (Enteric Coated) Tablet PO 05/28/25 07:59 81 mg
DAILY JAVON Administration
Atorvastatin Calcium 80 mg 04/30/25 18:00
Atorvastatin (Lipitor) 80 Mg Tablet PO 05/28/25 17:59
QPM JAVON
Cholecalciferol 25 mcg 04/30/25 08:00 04/30/25 07:28
Cholecalciferol (Vitamin D3) 25 Mcg Tablet (1,000 Units) PO 05/28/25 07:59 25 mcg
DAILY JAVON Administration
Clopidogrel Bisulfate 75 mg 04/30/25 08:00 04/30/25 07:28
Clopidogrel 75 Mg Tablet PO 05/21/25 07:59 75 mg
DAILY JAVON Administration
Duloxetine HCl 30 mg 04/30/25 08:00 04/30/25 07:28
Duloxetine Delayed Release 30 Mg Capsule PO 05/28/25 07:59 30 mg
DAILY JAVON Administration
Multivitamins Therapeutic 1 tablet 04/30/25 08:00 04/30/25 07:28
Multivitamin Tablet PO 05/28/25 07:59 1 tablet
DAILY JAVON Administration
Valsartan 80 mg 04/30/25 17:00
Valsartan 80 Mg Tablet PO 05/28/25 16:59
DAILY JAVON
Vitamin B Complex/Vitamin C 1 caplet 04/30/25 08:00 04/30/25 07:28
Vitamin B Complex With Vitamin C Caplet PO 05/28/25 07:59 1 caplet
DAILY JAVON Administration
Home Medications
�Medication �Instructions �Recorded
cholecalciferol (vitamin D3) 25 25 mcg PO DAILY Supplement 04/29/25
mcg (1,000 unit) tablet (Vitamin
D3)
yqascexads-pvzgatckleepdxw-fzrjsqzwprvrffab-acetaminophen 1 cap PO HSPRN PRN sleep 04/29/25
capsule
duloxetine 30 mg capsule,delayed 30 mg PO DAILY Mental 04/29/25
release Health/Anxiety
ibuprofen 200 mg tablet (Advil) 400 mg PO Q8HPRN PRN mild pain 04/29/25
therapeutic multivitamin 1 tab PO DAILY Supplement 04/29/25
vitamin B complex 1 tab PO DAILY Supplement 04/29/25
[2025-04-30] MEDS: NORVASC 2.5 MG PO (16:16)
[2025-04-30] MEDS: LIPITOR 80 MG PO (17:21)
[2025-04-30] MEDS: DIOVAN 80 MG PO (17:21)
[2025-04-30 19:00] VITALS: BP 158/92
[2025-04-30 23:00] VITALS: BP 135/98
[2025-05-01 03:50] VITALS: BP 128/81
[2025-05-01 07:00] VITALS: BP 125/91
--- NOTE | 2025-05-01 07:58 | W.PN.CD ---
Today's Communication / Plan
-
Continue current BP/lipid management.
DANISH.
Setup outpatient hypercoagulable panel and 14 day Holter.
Discuss PFO closure with neurology.
Outpatient follow up after testing completed to discuss PFO closure after reviewing with the PFO closure group.
Impression / Plan
-
Impression/Plan: 44 y/o female with a history of migraine, dyslipidemia, obesity s/p GBS and borderline HTN admitted with left frontal lobe CVA, subsequently diagnosed with PFO.
#Left frontal lobe ischemic CVA
-Acute, threat to bodily function.
-Permissive HTN for 24 hours.
-Monitor telemetry. EKG shows NSR.
-Current plan for DAPT (aspirin + clopidogrel) for 3 weeks, followed by aspirin indefinitely.
-DANISH to evaluate PFO.
#PFO
-New diagnosis.
-DANISH today to assess anatomy.
-RoPE score = 7 (high likelihood of CVA from paradoxical embolism).
-If anatomy is favorable, she would be a good candidate for PFO closure in the future.
-We will discuss with neurology to see if they concur.
-She will need a 14 day Holter monitor and a hypercoagulable panel to r/o indications for lifelong therapeutic anticoagulation.
-I had a thoughtful and thorough discussion with the patient and about PFO closure, indications, risks/benefits, preoperative assessment, etc. I answered all questions. Current plan will be to review DANISH and schedule follow up with me in
the office to review results of testing and to clarify any further needed testing. After that, the patient will be discussed in PFO closure group and final decision regarding PFO closure will be reached.
#Dyslipidemia
-Chronic, stable.
-Total cholesterol = 206, LDL 100, HDL 84 (!), Triglycerides = 112.
-Atorvastatin 80 mg daily.
#HTN:
-Chronic, previously borderline/untreated.
-BP improved on valsartan 80 mg daily and amlodipine 2.5 mg daily.
Subjective/Interval History:
Permitted to be hypertensive overnight.
Amlodipine 2.5 mg daily and valsartan 80 mg daily started.
TTE yesterday shows evidence of R-->L shunt. DANISH today to confirm PFO, assess anatomy.
Data:
Head CT, 04/29/2025:
IMPRESSION:
No acute intracranial abnormality.
ASPECT score: 10
Head/Neck CTA, 04/29/2025:
IMPRESSION:
No demonstrable carotid arterial atherosclerosis/stenosis bilaterally.
No findings to suggest internal carotid artery or vertebral artery dissection bilaterally. Vertebral arteries are approximately codominant.
No findings to suggest proximal intracranial arterial stenosis or vessel cut off bilaterally.
MRI Brain, 04/29/2025:
IMPRESSION:
1. 1.4 cm ACUTE ISCHEMIC INFARCT in the posterior cortical bates matter of the LEFT FRONTAL LOBE.
2. Mild white matter disease in the parietal lobes and minimal white matter disease in the frontal lobes which is most likely white matter leukoaraiosis or the sequela of migraine headaches. Vasculitis, connective tissue disease, Lyme disease, or
demyelinating disease are less likely diagnostic possibilities.
LE Duplex, 04/30/2025:
IMPRESSION:
No evidence of deep venous thrombosis bilaterally.
Complex Min's cyst in the right popliteal fossa.
TTE, 04/30/2025:
SUMMARY
1. Positive bubble study for right to left shunting at the level of the fossa ovalis consistent with PFO.
2. Normal biventricular size and systolic function.
3. No significant valve disease.
4. No prior study available for comparison.
Physical Exam
Vital Signs/Labs
Vital Signs
Temp Pulse Resp BP Pulse Ox
36.8 C 113 16 128/81 98
05/01/25 03:50 05/01/25 03:50 05/01/25 03:50 05/01/25 03:50 05/01/25 03:50
04/29/25 04/30/25 05/01/25
11:59 11:59 11:59
Actual Weight 87.118 kg
04/29/25 11:16
04/29/25 11:16
Magnesium 2.1 mg/dl (1.6-2.3) 04/29/25 11:16
Triglycerides 112 mg/dl (10-149) 04/29/25 11:16
LDL Cholesterol, Calc 100 mg/dl 04/29/25 11:16
VLDL Cholesterol, Calc 22 mg/dl (0-30) 04/29/25 11:16
HDL Cholesterol 84 mg/dl 04/29/25 11:16
Physical Exam
Constitutional: No acute distress and Comfortable
EENT: Anicteric and Moist mucous membranes
Cardiovascular: Rhythm & rate is regular, Pedal edema is absent, JVD pressure is normal, S1S2 is normal and Murmur/rub/gallop absent
Respiratory: Respiratory effort normal, Lungs clear to auscul., Wheeze Absent, Crackles Absent and Rhonchi Absent
GI: Soft, Distention absent, Flat, Non tender and Normal bowel sounds
Neuro/Psych: AO x 3
Data Reviewed
-
Date of Service: May 01, 2025
Medical Decision Making: Reviewed Test Results, Independent Historian Assessment and Test Interpretation
EKG: Tracing Personally Visualized and interpreted and Report Reviewed by me
Echo: Tracing Personally Visualized and interpreted and Report Reviewed by me
X-Ray/CT/US/MRI/NUC/PET: Image Personally Visualized and interpreted and Report Reviewed by me
Medical Tests (PFT, Pathology etc): Image Personally Visualized and interpreted and Report Reviewed by me
Labs: Labs Reviewed by me
Old Records: Reviewed
[2025-05-01] MEDS: ASPIR LOW (ENTERIC COATED) 81 MG PO (08:02)
[2025-05-01] MEDS: DIOVAN 80 MG PO (08:02)
[2025-05-01] MEDS: VITAMIN D3 (cholecalciferol) 25 MCG PO (08:02)
[2025-05-01] MEDS: PLAVIX 75 MG PO (08:02)
[2025-05-01] MEDS: B COMPLEX w/VITAMIN C 1 CAPLET PO (08:02)
[2025-05-01] MEDS: THERAGRAN 1 TABLET PO (08:02)
[2025-05-01] MEDS: CYMBALTA DELAYED RELEASE 30 MG PO (08:15)
[2025-05-01] MEDS: NORVASC 2.5 MG PO (08:15)
[2025-05-01 11:00] VITALS: BP 146/94
--- NOTE | 2025-05-01 11:42 | VATNOTE ---
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 Per report ice was applied to site and it was red and swollen. Upon this RNs assessment
area appeared mildly swollen (approx 16.5 cm x 15.5 cm) with mild erythema. Pt states that the swelling, redness, and discomfort has improved dramatically. Instructed PCN to ice intermittently for 4-6 hours and then apply heat and to keep arm
elevated. Swelling/redness marked with skin marker. Will re-evaluate daily and PRN.
--- NOTE | 2025-05-01 12:04 | W.PN.HOSP.TC ---
Addendum entered and electronically signed by Juan Robbins MD 05/01/25 16:00:
Please dont use billing under this note, use discharge summary billing instead
Original Note:
Today's Communication/Plan
-
pending final card and neuro recommendations
Minimal fine motor deficit on LUE
Assessment / Plan
Assessment / Plan
44yo F with PMHX of HTN in young age, MVP, daily headaches, ocular migraine, gastric bypass came with acute onset of R face numbness and drooping, later partially resolved. Also subjective weakness in RUE and RLE. MRI showed acute stroke on L
frontal lobe. She is not a candidate for TNK due to low NIHSS, and she is also not a candidate for IAT as there is no LVO. CTA without carotid stenosis. Telemetry with episodic sinus tachycardia. Echo with concern for PFO, however DANISH showed very
small, if any, shunt. Cardiology and Neurology involved. Meanwhile improved BP control. Will need BMP in 2-3 weeks with PCP due to new Valsartan
A/P:
#Acute CVA
#Mild white matter disease in the parietal lobes and minimal white matter disease in the frontal lobes
telemetry
ASA, plavix for 21 days, statin
LDL 100
TSH WNL
HgbA1c 5.4%
Permissive HTN first 24h
Echo with bubble study
NEurology to follow
Lyme serology pending
Reasonable outpatient rheumatologic W/U and loop recorder
#Anxiety d/o
#Obesity BMI 33.0%
reduce calorie intake
In process of weaning off Cymbalta, since weight gain of 35lbs occured after initiation of the drug
#KATHE
2/2 gastric bypass
followed by with intermittent iron infusions
DVT ppx SCDs
Full code
I have spent 60min reviewing chart, test results, communication with consultants, family and providing direct patient care
Anticipated Discharge: Within 24 hours
Subjective/Interval History
-
Date of Service: May 01, 2025
Objective Data
-
Vital Signs:
Vital Signs
Temp Pulse Resp BP Pulse Ox
98.3 F 85 18 146/94 99
05/01/25 11:00 05/01/25 11:00 05/01/25 11:00 05/01/25 11:00 05/01/25 11:00
I&O
04/30/25 05/01/25 05/02/25
06:59 06:59 06:59
Intake Total 480 / 480 720 / 720
Balance 480 / 480 720 / 720
Review of Systems
-
History Source: Patient
All other systems: Reviewed and negative
Physical Exam
-
General: No Apparent Distress
Neuro: Awake, Alert, Oriented and AO x 3
Psych: Calm
--- NOTE | 2025-05-01 12:13 | W.DCSUMMARY ---
Discharge Summary
Discharge Data
Date of Admission: 04/29/25
Date of Discharge: 05/01/25
-
Pending Results: Yes
Additional Pending Results:
Lyme disease
Hospital Course
44yo F with PMHX of HTN in young age, MVP, daily headaches, ocular migraine, gastric bypass came with acute onset of R face numbness and drooping, later partially resolved. Also subjective weakness in RUE and RLE. MRI showed acute stroke on L
frontal lobe. She is not a candidate for TNK due to low NIHSS, and she is also not a candidate for IAT as there is no LVO. CTA without carotid stenosis. Telemetry with episodic sinus tachycardia. Echo with concern for PFO, however DANISH showed very
small, if any, shunt. Cardiology and Neurology involved. Meanwhile improved BP control. Will need BMP in 2-3 weeks with PCP due to new Valsartan. Minimal fine motor deficit in R hand persistent upon d/c. No overt dysphasia, dysarthria or gait
disturbances
Cardiology will discuss possible PFO closure and establish medicaid service coordinator Holter monitor upon discharge - referral provided. Patient also will follow with established manager gas for further thrombophilia w/u. Patient and bedside
verbalized understanding and agreement with instructions
I have spent 60min reviewing chart, test results, communication with consultants, family and providing direct patient care
Patient was managed for:
#Acute CVA
#Mild white matter disease in the parietal lobes and minimal white matter disease in the frontal lobes
#PFO on TTE
#Essential HTN
#Anxiety d/o
#Obesity BMI 33.0%
Discharge Plan
-
Patient Disposition: Home (Routine Discharge)
Discharge Diagnosis/Procedures: CVA
Diet: Low Cholesterol
Activity: As tolerated
Blood Work: BMP with family doctor in 2-3 weeks due to new medication: Valsartan
Others Tests: 2 week heart monitor; cardiology office will call you to arrange [phone]
Referrals:
Sammy Bailon MD [Active, Neurology] - in four to six weeks
Zach Arce DO [Active, Cardiology] - 05/27/25 9:00 am
Referral Note: PFO closure consultation
Taina Mora DO [Active, Hematology / Oncology] - in one to two weeks
Referral Note: thrombophilia w/u
Eulalio Pritchett DO [Family Provider, [facility]]
Camilo Hauser MD [Active, Cardiology] - 07/29/25 11:00 am
Additional Discharge Medication Instructions: Take Plavix for 19 days and stop, Continue Aspirin and Statin indefinetely
Prescriptions:
New
atorvastatin 80 mg Tablet
80 mg PO QPM Qty: 30 0RF
valsartan 80 mg Tablet
80 mg PO DAILY Qty: 30 0RF
amlodipine 2.5 mg Tablet
2.5 mg PO DAILY Qty: 30 0RF
clopidogrel 75 mg Tablet
75 mg PO DAILY Qty: 19 0RF
aspirin 81 mg Tablet,Delayed Release (Dr/Ec)
81 mg PO DAILY Qty: 30 0RF
Continued
duloxetine 30 mg Capsule,Delayed Release(Dr/Ec)
30 mg PO DAILY
therapeutic multivitamin Tablet
1 tab PO DAILY
ibuprofen [Advil] 200 mg Tablet
400 mg PO Q8HPRN PRN (Reason: mild pain)
vitamin B complex Tablet
1 tab PO DAILY
dudqegxno-HKE-VM-acetaminophen Capsule
1 cap PO HSPRN PRN (Reason: sleep)
cholecalciferol (vitamin D3) [Vitamin D3] 25 mcg (1,000 unit) Tablet
25 mcg PO DAILY
Discharge Orders:
Discharge Patient (As Directed); Ordered 05/01/25
Ordered By: Juan Robbins
Discharge Date and Time
Print Language: IRISH
[2025-05-01 12:37] LABS: Lyme Antibody Screen, EIA Negative (Negative)
--- NOTE | 2025-05-01 13:59 | CM ---
CM following for discharge planning needs. Physical and Occupational therapy recommend outpatient therapy at time of discharge.
Plan: Discharge to home with outpatient PT and OT; will need Rx for outpatient therapies.
[2025-05-01 15:00] VITALS: BP 137/90
--- NOTE | 2025-05-01 15:01 | W.PN.NEURO.1 ---
Addendum entered and electronically signed by Pranav Jacinto MD 05/01/25 17:46:
I saw and examined the patient today and discussed the assessment and the management plan with nurse practitioner Halina Foley. I agree with the assessment and the management plan by the nurse practitioner Halina Foley. The following is my
addendum.
The patient is a 44 years old female with a past medical history of migraine with aura, hypertension which was untreated and anxiety, who presented to the ER with complaint of right-sided facial droop, right-sided facial numbness and headache. The
patient has a history of migraines. The patient's symptoms started at around 10:40 AM on 04/29/2025, and she complained of a facial droop on the right side and numbness of the right side of the mouth. The NIH stroke scale was 2. She reported
having a 6/10 headache on the top of her head radiating down the back of her head.
Today, the patient is almost back to her baseline. She does not have a facial droop and there is no gross focal weakness, also her speech is clear, however, she does report mild numbness of the right side of the mouth. NIHSS = 1.
Neurologic Examination:
The patient is alert and oriented x 3,
Speech is clear,
The cranial nerves II to XII are grossly intact ,
The motor strength is grossly 5/5 bilaterally in the upper and lower extremities,
The sensations are grossly intact bilaterally in the upper and lower extremities except for a mildly decreased touch sensation on the right side of the face.
The cerebellar examination did not show any limb ataxia.
ASSESSMENT AND PLAN:
The patient is a 44 years old female who presented with right-sided facial droop and numbness of the right side of the lower face. The patient did not have any speech difficulty and focal numbness or weakness of the bilateral upper and lower
extremities. The CT of the head did not show any acute intracranial abnormality. The CTA of head and neck did not show a large vessel occlusion. She was not a candidate for TNK due to low NIHSS, and she was also not a candidate for IAT as there was
no LVO. She reported having a 6/10 headache on the top of her head radiating down the back of her head. She has a history of migraine with aura.
. A transthoracic echocardiogram was done on 04/30/2025 that showed a positive bubble study for right to left shunting at the level of the fossa ovalis consistent with PFO.
. A DANISH was done on 05/01/[address] Zach Arce, the 'PFO is not blatantly obvious' and he recommended that the patient can be discharged and we may need to repeat the DANISH versus check cardiac MRI which can be done as an outpatient.
At this time, official DANISH report is not available, therefore the patient was follow-up with Dr. Zach Arce for further workup as an outpatient. The patient's case was also discussed with Dr. Juan Robbins.
. MRI of the brain showed a 1.4 cm acute ischemic infarct in the posterior cortical bates matter of the left frontal lobe.
. Today, she does not have a facial droop and there is no gross focal weakness, also her speech is clear, however, she does report mild numbness of the right side of the mouth. NIHSS = 1.
. The patient is going to be on aspirin Plavix and statin.
. Continue Norvasc and Valsartan.
A detailed discussion was held with the patient and her who was present at the bedside, regarding the assessment and the management plan, and they verbalized understanding of our discussion. The patient and her were told to
follow-up with Dr. Zach Arce and also to follow-up with the PCP. The need for control of hypertension and to take the medications as prescribed was emphasized. Follow-up with neurology in about 3 weeks is recommended. Both, the patient and her
, verbalized understanding of our discussion.
Original Note:
Today's Communication / Plan
-
.
Neuro Assessment/Plan
Assessment
This is a 44-year-old female who presented to [facility] on 04/29/25 with right-sided facial droop and numbness of the right side of the lower face. The patient did not have any speech difficulty and focal numbness or weakness of the bilateral upper and
lower extremities initially, now notices right hand fine motor mild dexterity difficulty. The CT of the head did not show any acute intracranial abnormality. The CTA of head and neck did not show a large vessel occlusion. She was not a candidate
for TNK due to low NIHSS, and she is also not a candidate for IAT as there is no LVO. Blood pressure was 179/93 on arrival. She reported having a 6/10 headache on the top of her head radiating down the back of her head. She has a history of migraine
with aura.
-CT Head 04/29/25: No acute intracranial abnormality. ASPECT score: 10.
-CTA head/neck 04/29/25: No demonstrable carotid arterial atherosclerosis/stenosis bilaterally. No findings to suggest internal carotid artery or vertebral artery dissection bilaterally. Vertebral arteries are approximately codominant. No findings
to suggest proximal intracranial arterial stenosis or vessel cut off bilaterally.
-MRI brain 04/29/25: 1.4 cm ACUTE ISCHEMIC INFARCT in the posterior cortical bates matter of the LEFT FRONTAL LOBE. Mild white matter disease in the parietal lobes and minimal white matter disease in the frontal lobes which is most likely white
matter leukoaraiosis or the sequela of migraine headaches. Vasculitis, connective tissue disease, Lyme disease, or demyelinating disease are less likely diagnostic possibilities.
-TTE 04/30/25: Positive bubble study for right to left shunting at the level of the fossa ovalis consistent with PFO.
-TTE 05/01/25: Official report pending. Per Cardiology Dr. Arce, no evidence of PFO by DANISH.
I. Acute left frontal lobe ischemic infarct, etiology is uncertain. The appearance of the stroke is supportive of hypertension/small vessel disease as the etiology; but given the young age of the patient, cannot entirely exclude a small PFO flap in
the setting of uncontrolled hypertension producing a thrombus, also need to exclude a hypercoagulable disorder as a potential stroke contributor.
II. HTN.
III. History of migraine with aura, this is associated with a slight increased risk for stroke.
Plan
-Continue DAPT with aspirin 81mg and clopidogrel 75mg daily for 21 days. After 21 days, discontinue clopidogrel and continue aspirin 81mg daily, indefinitely.
-Goal normotension.
-No indication for PFO closure at this point. Follow-up with Cardiology for repeat echo vs cardiac MRI imaging in about 3-6 months to re-evaluate for PFO.
-Outpatient Holter monitor per Cardiology.
-Hypercoagulable labs pending, follow-up with your outpatient quality assurance supervisor body Dr. Mora.
-LDL goal <70. LDL is 100. Continue newly initiated atorvastatin 80mg daily.
-Goal normoglycemia, hbA1c is 5.4.
-Avoid estrogen containing products/hormonal control as this has an association with a slight increased risk of stroke in patient's with migraine with aura.
-NIHSS and neurological checks per unit guidelines.
-Provide patient/family with a stroke education packet.
-PT/OT/ST evaluations.
-DVT prophylaxis.
-Follow-up with Neurology as an outpatient.
Neurology will sign-off, please contact our service with any questions/concerns.
Subjective/Objective
Subjective Data
Date of Service: May 01, 2025
No acute events overnight. Patient reports ongoing mild difficulty with right hand fine motor dexterity and feeling a slightly 'fat lip' sensation on the right side of her mouth but otherwise feels at her baseline.
Objective Data
Vital Signs
Temp Pulse Resp BP Pulse Ox
98.3 F 85 18 146/94 99
05/01/25 11:00 05/01/25 11:00 05/01/25 11:00 05/01/25 11:00 05/01/25 11:00
Lab Results
04/29/25 11:16
04/29/25 11:16
Sodium 135 mmol/L (135-145) 04/29/25 11:16
Potassium 4.4 mmol/L (3.5-5.1) 04/29/25 11:16
BUN 11 mg/dl (7-17) 04/29/25 11:16
Glucose 92 mg/dl (70-99) 04/29/25 11:16
Calcium 9.2 mg/dl (8.4-10.2) 04/29/25 11:16
LDL Cholesterol, Calc 100 mg/dl 04/29/25 11:16
Vitamin B12 376 pg/ml (239-931) 04/29/25 11:16
Patient Allergies
bupropion (From Wellbutrin) Allergy (Intermediate, Verified 04/29/25 12:21)
Rash
Penicillins Allergy (Intermediate, Verified 04/29/25 11:15)
Hives
vancomycin Allergy (Unknown, Verified 04/29/25 11:15)
Unknown
LDL Level: >70, statin ordered
Review of Systems
-
History Source: Patient
EENT: Negative Blurry Vision, Decreased Vision or Swallowing Difficulty
Neuro: Weakness (R hand subjective weakness) and Ataxia (R hand fine motor movements); Negative Dizzy, Headache, Numbness, Tremors or Speech Problem
Physical Exam
-
General: Well Developed, Well Nourished and No Apparent Distress
Eyes: No Ptosis and PERRLA
HEENT: Normocephalic and Atraumatic
Neck: Full Range of Motion
GI: Non-distended
Extended Neurological Exam
Mood & Affect: Mood Unremarkable and Affect Unremarkable
Attention Span & Concentration: Awake, Alert and Interactive
Memory: Unremarkable and Able to Recall
Tremor: Hand Tremor Absent and Head Tremor Absent
Involuntary Movement: None
Speech: Quality Unremarkable, Quantity Unremarkable and Rate of Production Unremarkable
Cranial Nerves III, IV, : Extraocular Movement: Extraocular Movement Full in all Directions
Cranial Nerve VII: Facial Symmetry: Normal Facial Symmetry
Cranial Nerve VIII: Hearing: Unremarkable Hearing to Normal Conversational Volume
Muscle Strength, Overall: Spontaneously Moves
Pronator Drift: No Drift in Upper Extremities and No Drift in Lower Extremities
Coordination: Zdeqjs-pesm-yvjudd Testing Unremarkable
Modified Chapin Score (MRS)
-
Modified Chapin Scale (mRS): No significant disability. Able to carry out usual activities.
Score: 1
Data Reviewed
-
CT-A: Report Reviewed and Image Reviewed
MRI Head: Report Reviewed and Image Reviewed
Labs: Report Reviewed
Lipid Profile: Report Reviewed
HgbA1C: Report Reviewed
Reviewed with: Physician, Patient and Family
Medications
-
Active Medications
Generic Name Dose Route Start Last Admin
Trade Name Freq PRN Reason Stop Dose Admin
Acetaminophen 650 mg 04/29/25 21:00 04/30/25 13:23
Acetaminophen 325 Mg Tablet PO 05/27/25 20:59 650 mg
Q4HPRN PRN Administration
mild pain/PASTRANA/temp> 100.4F
Amlodipine Besylate 2.5 mg 04/30/25 15:00 05/01/25 08:15
Amlodipine 2.5 Mg Tablet PO 05/28/25 14:59 2.5 mg
DAILY JAVON Administration
Aspirin 81 mg 04/30/25 08:00 05/01/25 08:02
Aspirin 81 Mg (Enteric Coated) Tablet PO 05/28/25 07:59 81 mg
DAILY JAVON Administration
Atorvastatin Calcium 80 mg 04/30/25 18:00 04/30/25 17:21
Atorvastatin (Lipitor) 80 Mg Tablet PO 05/28/25 17:59 80 mg
QPM JAVON Administration
Cholecalciferol 25 mcg 04/30/25 08:00 05/01/25 08:02
Cholecalciferol (Vitamin D3) 25 Mcg Tablet (1,000 Units) PO 05/28/25 07:59 25 mcg
DAILY JAVON Administration
Clopidogrel Bisulfate 75 mg 04/30/25 08:00 05/01/25 08:02
Clopidogrel 75 Mg Tablet PO 05/21/25 07:59 75 mg
DAILY JAVON Administration
Duloxetine HCl 30 mg 04/30/25 08:00 05/01/25 08:15
Duloxetine Delayed Release 30 Mg Capsule PO 05/28/25 07:59 30 mg
DAILY JAVON Administration
Multivitamins Therapeutic 1 tablet 04/30/25 08:00 05/01/25 08:02
Multivitamin Tablet PO 05/28/25 07:59 1 tablet
DAILY JAVON Administration
Valsartan 80 mg 04/30/25 17:00 05/01/25 08:02
Valsartan 80 Mg Tablet PO 05/28/25 16:59 80 mg
DAILY JAVON Administration
Vitamin B Complex/Vitamin C 1 caplet 04/30/25 08:00 05/01/25 08:02
Vitamin B Complex With Vitamin C Caplet PO 05/28/25 07:59 1 caplet
DAILY JAVON Administration
Home Medications
�Medication �Instructions �Recorded
cholecalciferol (vitamin D3) 25 25 mcg PO DAILY Supplement 04/29/25
mcg (1,000 unit) tablet (Vitamin
D3)
ifahdxryja-viwaimceuhnlyuk-txuvtxamxqxnpiyc-acetaminophen 1 cap PO HSPRN PRN sleep 04/29/25
capsule
duloxetine 30 mg capsule,delayed 30 mg PO DAILY Mental 04/29/25
release Health/Anxiety
ibuprofen 200 mg tablet (Advil) 400 mg PO Q8HPRN PRN mild pain 04/29/25
therapeutic multivitamin 1 tab PO DAILY Supplement 04/29/25
vitamin B complex 1 tab PO DAILY Supplement 04/29/25
amlodipine 2.5 mg tablet 2.5 mg PO DAILY #30 tabs 05/01/25
aspirin 81 mg tablet,delayed 81 mg PO DAILY #30 tabs 05/01/25
release
atorvastatin 80 mg tablet 80 mg PO QPM #30 tabs 05/01/25
clopidogrel 75 mg tablet 75 mg PO DAILY #19 tabs 05/01/25
valsartan 80 mg tablet 80 mg PO DAILY #30 tabs 05/01/25
--- NOTE | 2025-05-02 13:19 | ITS.CL.PN ---
[facility] - Procedure Note
Procedure
Procedure Note:
Date of Procedure: 05/01/25
Procedure: DEZ
Indication:
Performing Physician: Rika Casey MD
Technique: The patient was brought to the holding area. Signed informed consent was obtained. A time out was called and performed. The patient was anesthetized by the anesthesia service. The DEZ probe was inserted without difficulty. DEZ images
were obtained. There were no complications.
Conclusion: Uncomplicated DEZ.
Recommendation: Routine post Dez care.
[2025-05-04 15:10] LABS: Protein C, Total Antigen 93 % (63-153)
[2025-05-05 02:18] LABS: Beta-2-Glycoprotein I Ab. IgG <10 SGU (<=20); Beta-2-Glycoprotein I Ab. IgM 19 SMU (<=20)
[2025-05-05 20:40] LABS: Phosphatidylserine Ab, IgA 0 APS (0-19); Phosphatidylserine Ab, IgG 0 GPS (0-15); Phosphatidylserine Ab, IgM 16 MPS (0-21)
[2025-05-05 23:24] LABS: Beta-2-Glycoprotein I Ab. IgA <10 SAU (<=20)
== END 2025-05-01 17:06 | disposition home or self-care (01) | DRG 65 ==
LOC: 3 WEST ACU 18:30
PROVIDERS: Physician Assistant; Registered Nurse Critical Care Medicine; Student in an Organized Health Care Education/Training Program; ADMITTING PHYSICIAN Internal Medicine; ATTENDING PHYSICIAN Internal Medicine; CONSULT PHYSICIAN Internal Medicine Cardiovascular Disease; CONSULT PHYSICIAN Psychiatry & Neurology Neurology; EMERGENCY PHYSICIAN Emergency Medicine; FAMILY PHYSICIAN Family Medicine
PROC: B24BZZ4 Ultrasonography of Heart with Aorta, Transesophageal (ICD-10-PCS; 2025-05-01)
DX: I63.9 Cerebral infarction, unspecified (principal); Q21.12 Patent foramen ovale; Z79.02 Long term (current) use of antithrombotics/antiplatelets; Z79.82 Long term (current) use of aspirin; F41.9 Anxiety disorder, unspecified; E66.9 Obesity, unspecified; Z68.33 Body mass index [BMI] 33.0-33.9, adult; R29.702 NIHSS score 2; Z79.899 Other long term (current) drug therapy; Z82.3 Family history of stroke
CPT/HCPCS: 70450; 70496; 70498; 70551; 80053; 80061; 82607; 82728; 82746; 82962; 83036; 83735; 84443; 85025; 85300; 85302; 85306; 85610; 85613; 85730; 86146; 86147; 86148; 86618; 92523; 93005; 93306; 93312; 93320; 93325; 93970; 97162; 97166; 99285; Q9967

== ENCOUNTER 2025-05-02 03:22 | Observation (INO) | payer BC, SELFPAY ==
[2025-05-01 22:48] VITALS: BP 146/98
[2025-05-01 23:09] VITALS: BP 128/86
[2025-05-01 23:16] VITALS: BMI 32.6
[2025-05-01 23:53] LABS: Hematocrit 38.5 % (37.0-47.0); Hemoglobin 12.9 g/dL (12.0-16.0); Mean Corp Hgb Conc. 33.5 g/dL (33.0-37.0); Mean Corpuscular Volume 91.4 fL (81.0-99.0); Nucleated Red Blood Cells % 0 %; Platelet Count 267 10^3/uL (130-400); Red Cell Dist. Width 12.4 % (11.5-14.5)
[2025-05-02] VITALS (8 sets, daily range): BP systolic 118–138; BP diastolic 77–91; BMI 33.0
[2025-05-02] LABS: ALT (SGPT) 31 U/L (0-35); AST (SGOT) 29 U/L (14-36); Albumin 4.6 g/dl (3.5-5.0); Alkaline Phosphatase 46 U/L (38-126); Blood Urea Nitrogen 16 mg/dl (7-17); Calcium 9.7 mg/dl (8.4-10.2); Carbon Dioxide 23 mmol/L (22-30); Chloride 105 mmol/L (98-107); Estimated Creatinine Clearance 108 ml/min; Glucose 105 mg/dl (70-99); Potassium 4.1 mmol/L (3.5-5.1); Sodium 135 mmol/L (135-145); Total Protein 7.5 g/dl (6.3-8.2); eGFR > 60.00
[2025-05-02 00:11] LABS: INR 0.92; PT 12.9 Sec (11.4-14.6)
[2025-05-02 00:12] LABS: APTT 29.1 Sec (23.4-35.0)
[2025-05-02 00:28] LABS: Troponin I < 0.012 ng/ml
--- NOTE | 2025-05-02 00:51 | ED.CVA ---
History of Present Illness
General
Chief Complaint: CVA/TIA Symptoms
Source: patient and spouse
Time Seen by Provider: 05/01/25 23:52
Onset of Stroke Symptoms
Onset of symptoms known: Yes
Date of onset of symptoms: 05/02/25
History of Present Illness
History of Present Illness:
Note:
CHIEF COMPLAINT(S)
Intermittent numbness and tingling in the right arm and hand, with a brief episode of tingling sensation on the right side of the face.
HISTORY OF PRESENT ILLNESS
This is a 44-year-old female presenting with intermittent numbness and tingling in the right arm and hand. She experienced a brief episode of tingling on the right side of her face, specifically felt like the sensation post-anesthesia from a dental
procedure. This facial sensation lasted for about two minutes and has since resolved. The patient denies any new symptoms involving speech, vision, or motor function in the legs. She reports that her previous right facial symptoms improved but
mentioned this brief recurrence in the same area. The patient is currently on medications including Lipitor, aspirin, and Plavix for previous cerebrovascular issues.
PAST MEDICAL AND SURGICAL HISTORY
CVA
Hypertension
MEDICATIONS
- Aspirin
- Plavix
- Lipitor
PHYSICAL EXAM
General: Alert, no acute distress.
Skin: Warm, dry.
Head: Normocephalic, atraumatic.
Neck: Supple, trachea midline.
Eyes, Ears, Nose, Mouth, and Throat: Oral mucosa moist.
Cardiovascular: Normal peripheral perfusion, no edema.
Respiratory: Respirations are non-labored.
Gastrointestinal: Abdomen nondistended.
Back: Normal range of motion, normal alignment.
Musculoskeletal: Normal range of motion, normal strength.
Neurological: Alert and oriented to person, place, time, and situation, no focal neurological deficit observed.
Psychiatric: Cooperative, appropriate mood and affect.
PROBLEM LIST
Acute
- Intermittent numbness and tingling in the right arm and hand
Chronic
- Cerebrovascular disease
PLAN
1. Observation: The patient will be observed overnight in the hospital to monitor for any recurrence of symptoms and to ensure stability.
2. Neurology Consult: The neurology team will reassess in the morning to determine the need for further interventions or imaging, such as an MRI, if deemed necessary.
3. Medications: Confirmed that the patient received aspirin and Plavix as these medications are critical in preventing further cerebrovascular events.
4. Education: Educate the patient about the importance of recognizing any recurrent symptoms and encourage immediate return to care if symptoms reappear.
DIFFERENTIAL DIAGNOSIS
The differential diagnosis includes, in no particular order and is not limited to:
1. Transient Ischemic Attack (TIA)
2. Stroke
3. Migraine with aura
4. Seizure
5. Multiple Sclerosis
6. Peripheral neuropathy
7. Cervical Radiculopathy
8. Hemiplegic Migraine
9. Hyperventilation syndrome
10. Anxiety-related somatic symptoms
The patient is made aware of the monitoring plan, and further discussions regarding management options will occur following additional evaluations from the neurology team.
Disposition:
SUMMARY OF ENCOUNTER
A 44-year-old female was seen in the emergency department after experiencing sensory changes to the right side of her face. These symptoms were felt in the same area as a previous cerebrovascular incident. The patient was recently discharged
post-stroke workup and was scheduled for further outpatient testing, including a potential patent foramen ovale (PFO) and hypercoagulable workup. She has received aspirin, clopidogrel (Plavix), and atorvastatin (Lipitor) today. The patients
symptoms, which lasted approximately three minutes, have resolved, and her neurological exam was non-focal. Given the resolution of symptoms and recent imaging, a head CT was not deemed necessary. Due to the patients and her husbands concerns,
overnight observation for neurology evaluation is planned.
DISPOSITION
Observation
ASSESSMENT
The patient is experiencing sensory changes possibly related to her history of cerebrovascular issues. Concerns regarding a PFO or hypercoagulable state need to be addressed in subsequent evaluations.
PLAN
The patient will be observed overnight in the hospital for monitoring and evaluation by neurology in the morning to assess for further interventions, including PFO and hypercoagulable workups if necessary.
PATIENT EDUCATION AND COUNSELING
The patient was educated about the importance of monitoring for recurrent symptoms and was advised to return for care immediately if symptoms reappear. Discussed potential need for different anticoagulation therapy upon further diagnosis.
MEDICATION RECONCILIATION
The patient confirmed receiving aspirin, clopidogrel (Plavix), and atorvastatin (Lipitor) today.
MEDICAL DECISION MAKING
-Number and Complexity of Problems Addressed: Chronic conditions affecting care include cerebrovascular disease, with a differential diagnosis considering transient ischemic attack (TIA), stroke, migraine with aura, seizure, multiple sclerosis,
peripheral neuropathy, cervical radiculopathy, hemiplegic migraine, hyperventilation syndrome, and anxiety-related somatic symptoms.
-Data:
Category 1: Non-emergency department records reviewed; confirmed the patient received aspirin and clopidogrel. A head CT was considered but ultimately not conducted due to recent advanced imaging and resolved symptoms.
Category 3: Discussed management with neurology for further evaluation and consideration of potential PFO and hypercoagulable workup.
-Risk: Hospital observation was considered necessary for further neurological assessment, pending outpatient follow-up for additional diagnostic evaluations including possible PFO and hypercoagulable state workup.
DIAGNOSIS
Sensory changes post recent stroke; potential PFO; hypercoagulability state. Further investigations are necessary for definitive diagnosis. Codes used are:
- R20.1 for sensory disturbance of face
- I63.9 for cerebral infarction, unspecified
Phy Exam
Physical Exam
Physical Exam:
.
Course
Orders/Labs/Results
Orders:
Orders
05/01/25 23:11
Cardiac Monitoring- Treatment ONCE
05/01/25 23:28
Complete Blood Count/With Diff Urgent
Comprehensive Metabolic Panel Urgent
PTT Urgent
Prothrombin Time Urgent
Troponin I Urgent
05/02/25 00:51
Electrocardiogram (*1) Urgent
Reason for Study: TIA/Stroke
EKG- Treatment ONCE
Abnormal Lab Results
05/01/25
23:28
Absolute Monos (auto) 0.9 H 10^3/uL
(0.1-0.6)
Monocytes % 11.8 H %
(1.7-9.3)
Glucose 105 H mg/dl
(70-99)
05/01/25 23:28
05/01/25 23:28
Vital Signs
Initial and Last Documented VS:
Initial Vital Signs
Temp Pulse Resp BP Pulse Ox
98.5 F 101 20 146/98 97
05/01/25 22:48 05/01/25 22:48 05/01/25 22:48 05/01/25 22:48 05/01/25 22:48
Last Documented Vital Signs
Temp Pulse Resp BP Pulse Ox
98.5 F 84 21 118/83 97
05/01/25 22:48 05/02/25 00:45 05/02/25 00:45 05/02/25 00:00 05/02/25 00:51
*Pulse Oximetry
SaO2: 97
Oxygen Mode of Delivery: Room air
Patient hypoxic: no
*Critical Care Note
Total Time (30-74mins, 75-104mins- exclusive of procedures): Not Applicable
ED Attending Note
-
Portions of this chart may have been created with voice recognition software.� Occasional wrong word or��sound alike� substitutions may have occurred due to the inherent limitations of voice recognition software.
Discharge Plan
Departure
Patient Disposition: Admit
Date of Disposition: 05/02/25
Time of Disposition: 00:51
Admit to: Telemetry
Presentation/result/management discussed w/ accepting MD/DO: Hospitalist
Discharge Problem:
Numbness
Prescriptions:
No Action
duloxetine 30 mg Capsule,Delayed Release(Dr/Ec)
30 mg PO DAILY
therapeutic multivitamin Tablet
1 tab PO DAILY
ibuprofen [Advil] 200 mg Tablet
400 mg PO Q8HPRN PRN (Reason: mild pain)
vitamin B complex Tablet
1 tab PO DAILY
zlpmerdmm-CCC-ZA-acetaminophen Capsule
1 cap PO HSPRN PRN (Reason: sleep)
cholecalciferol (vitamin D3) [Vitamin D3] 25 mcg (1,000 unit) Tablet
25 mcg PO DAILY
atorvastatin 80 mg Tablet
80 mg PO QPM Qty: 30 0RF
valsartan 80 mg Tablet
80 mg PO DAILY Qty: 30 0RF
amlodipine 2.5 mg Tablet
2.5 mg PO DAILY Qty: 30 0RF
clopidogrel 75 mg Tablet
75 mg PO DAILY Qty: 19 0RF
aspirin 81 mg Tablet,Delayed Release (Dr/Ec)
81 mg PO DAILY Qty: 30 0RF
Referrals:
Eulalio Pritchett DO [Family Provider, Family Practice]
Interventions
Interventions:
*Risk Screen - Suicide Last Done: 05/01/25 22:48
*General Assessment Last Done: 05/01/25 22:48
*Neglect/Abuse Screening Last Done: 05/01/25 22:48
*ED- Fall Risk Assessment Last Done: 05/01/25 22:48
*ED COVID-19 Vaccine History Last Done: 05/01/25 22:48
*ED Influenza Vaccine History Last Done: 05/01/25 22:48
ED- Pulmonary Assessment Last Done: 05/01/25 23:16
ED- Neurological Assessment Last Done: 05/01/25 23:16
ED- Cardiac Assessment Last Done: 05/01/25 23:16
ED Swallowing Screen Last Done: 05/01/25 23:16
Discharge Date and Time
Print Language: IRISH
--- NOTE | 2025-05-02 03:17 | HPS.HSE ---
Family Physician
-
Family Physician: Eulalio Pritchett
Chief Complaint
-
Facial numbness
History of Present Illness
Patient is a 44y F with PMH significant for migraines, iron deficiency anemia and recent admission for L frontal CVA who presents to ED complaining of R facial tingling. Patient was discharged to home earlier today after admission for R facial
numbness and RUE weakness. She was found to have L frontal CVA on MRI. TTE with bubble study was done showing positive R to L shunt. DANISH was done this AM prior to discharge and reportedly was 'inconclusive'.
Patient was feeling well at the time of discharge. She has some mild residual RUE weakness - most evident with handwriting, fine motor actions, etc.
Today at home she had an episode of pins and needles of the R cheek, side of the nose and R forehead. There was no associated numbness sensation as previous. No increase in RUE weakness, ataxia, etc.
Symptoms lasted 3-4 minutes and patient returned to the ED for further evaluation.
Patient has no facial tingling, numbness, etc at present.
Medical History
Past Medical History
Past Medical History: Reports Other
Additional Past Medical History:
Left Frontal CVA
Iron deficiency anemia
Obesity
Anxiety
Migraine headaches
Past Surgical History: Reports Other
Additional Past Surgical History:
Hernia repair 2011
Breast implants 2011
Eye surgery 2016
Gastric Bypass
Social History
Tobacco: Non-smoker
Alcohol: None
Drug: None
Personal:
Living: With Family
Family History
Family History: Other (Hypertension mother, father, maternal grandparents, paternal grandparents)
Allergies / Home Medications
Allergies reflects when Allergies were last updated in [facility].
Home Medications with original date entered in [facility]
Allergy/Medication List:
Allergies
Allergy/AdvReac Type Severity Reaction Status Date / Time
bupropion (From Wellbutrin) Allergy Intermediate Rash Verified 05/01/25 22:48
Penicillins Allergy Intermediate Hives Verified 05/01/25 22:48
vancomycin Allergy Unknown Unknown Verified 05/01/25 22:48
Home Medications
cholecalciferol (vitamin D3) 25 mcg (1,000 unit) tablet (Vitamin D3) 25 mcg PO DAILY Supplement 04/29/25
hueatkazeb-dpgflkpbogjowvj-kwndijpkdkzzyafs-acetaminophen capsule 1 cap PO HSPRN PRN sleep 04/29/25
duloxetine 30 mg capsule,delayed release 30 mg PO DAILY Mental Health/Anxiety 04/29/25
ibuprofen 200 mg tablet (Advil) 400 mg PO Q8HPRN PRN mild pain 04/29/25
therapeutic multivitamin 1 tab PO DAILY Supplement 04/29/25
vitamin B complex 1 tab PO DAILY Supplement 04/29/25
amlodipine 2.5 mg tablet 2.5 mg PO DAILY #30 tabs 05/01/25
aspirin 81 mg tablet,delayed release 81 mg PO DAILY #30 tabs 05/01/25
atorvastatin 80 mg tablet 80 mg PO QPM #30 tabs 05/01/25
clopidogrel 75 mg tablet 75 mg PO DAILY #19 tabs 05/01/25
valsartan 80 mg tablet 80 mg PO DAILY #30 tabs 05/01/25
Review of Systems
-
History Source: Patient
A 12 point ROS was completed and negative except as noted: Yes
Constitutional: Denies Fever or Chills
Respiratory: Denies Cough or Trouble Breathing
Cardiac: Denies Chest Pain or Palpitations
Abdomen/GI: Denies Abdominal Pain, Nausea, Vomiting or Diarrhea
: Denies Dysuria or Frequency
Musculoskeletal: Denies Joint Pain or Edema
Neurological: Reports Other (facial paresthesias, residual RUE weakness); Denies Dizzy, Headache or Numbness
Physical Exam
Vital Signs
Vital Signs
Temp Pulse Resp BP Pulse Ox
98.5 F 82 22 119/90 94
05/01/25 22:48 05/02/25 03:00 05/02/25 03:00 05/02/25 03:00 05/02/25 03:00
Physical Exam
General: Other (44y F in no acute distress.)
HEENT: Moist mucous membranes, PERRLA and Other (Mild facial flushing.)
Respiratory: Clear; No Wheezes, Rales or Rhonchi
Cardiac: S1/S2 and Regular Rhythm; No Murmur
GI: Soft, Non Tender, Non Distended and Normal Bowel Sounds
Musculoskeletal: No Clubbing, No Cyanosis and No Edema
Neuro: AO x 3 and Other (Mild RUE weakness when compared to the L (R hand dominant). No facial sensory or motor deficit appreciated.)
Laboratory Results
-
05/01/25 23:28
05/01/25 23:28
Laboratory Results
PT 12.9 Sec (11.4-14.6) 05/01/25 23:28
INR 0.92 05/01/25 23:28
APTT 29.1 Sec (23.4-35.0) 05/01/25 23:28
Total Bilirubin 0.4 mg/dl (0.2-1.3) 05/01/25 23:28
AST 29 U/L (14-36) 05/01/25 23:28
ALT 31 U/L (0-35) 05/01/25 23:28
Alkaline Phosphatase 46 U/L (38-126) 05/01/25 23:28
Troponin I < 0.012 ng/ml 05/01/25 23:28
Impression/Plan
-
A/P: Patient is a 44y F with PMH significant for migraines, obesity s/p gastric bypass and recent CVA who presents to ED complaining of R facial paresthesias.
CVA
Right Facial Paresthesias
- Observe overnight for further evaluation and treatment.
- Symptoms likely represent recent stroke (similar though less severe / extensive symptoms) with some waxing / waning symptoms.
- Less likely new / second event.
- Continue DAPT, statin, BP control, etc.
- Continue / complete planned evaluation including hypercoagulable work-up, cardiac MRI, etc as already planned.
- Neuro consulted for re-evaluation and any additional testing / changes to plan.
- Monitor for any new or recurrent symptoms.
Obesity s/p Gastric Bypass
Iron Deficiency Anemia
- Stable. Affects all aspects of care.
- Followed by Hematology (Dr. Mora) for PRN iron infusions as an outpatient.
Anxiety
Migraine Headaches
- Stable. Continue current medications.
DVT Prophylaxis: Lovenox
Code Status: Full
[2025-05-02] MEDS: NORVASC 2.5 MG PO (08:42)
[2025-05-02] MEDS: DIOVAN 80 MG PO (08:42)
[2025-05-02] MEDS: CYMBALTA DELAYED RELEASE 30 MG PO (08:42)
[2025-05-02] MEDS: PLAVIX 75 MG PO (08:42)
[2025-05-02] MEDS: ASPIR LOW (ENTERIC COATED) 81 MG PO (08:42)
--- NOTE | 2025-05-02 09:45 | W.PN.HOSP.TC ---
Today's Communication/Plan
-
dc
Assessment / Plan
Assessment / Plan
44yo F with PMHX of HTN in young age, daily headaches, ocular migraine, gastric bypass came back after earlier discharge due to recurrence of R lower face tingling lasted for up to 5 min. Already planned for outpatient cardiology appt for possible
cardiac MRI to make a desision if PFO significant enough to be clised and for family and divorce legal assistant Hoslter. Also started on new antihypertensives. Sen by NEurologist- no change in mgmt. COnt same ASA, statin indefinetely and Plavix. To continue working on
better BP control, but since just recent (11 day ago) addition of 2 new medications - no clear indication for need in uptitration. Reviewed Lyme serology - negative. As agreed with neurologist - medically stable for d/c home
A/P:
#Recent Acute CVA
Neuro consult
Tele - no new clinically significant arrhythmia
contASA, statin, Plavix
#PFO
outpatient cardio for holter and posisble cardiac MRI
#EssentiaL HTN
cont new meds
BMP in 2 weeks
#Anxiety d/o
#Obesity BMI 33.0%
#Ocular migraine
cont home meds
DVT ppx SCDs
Full code
I have spent at least 86min reviewing chart, test results, communication with consultants, family and providing direct patient care
Anticipated Discharge: Today
Subjective/Interval History
-
Date of Service: May 02, 2025
Objective Data
-
Labs:
Laboratory Results
05/01/25
23:28
WBC 7.3
Hgb 12.9
Hct 38.5
Plt Count 267
PT 12.9
INR 0.92
APTT 29.1
Sodium 135
Potassium 4.1
Chloride 105
Carbon Dioxide 23
BUN 16
Creatinine 0.7
Glucose 105 H
Calcium 9.7
Total Bilirubin 0.4
AST 29
ALT 31
Alkaline Phosphatase 46
Vital Signs:
Vital Signs
Temp Pulse Resp BP Pulse Ox
97.9 F 81 16 121/77 97
05/02/25 07:35 05/02/25 07:35 05/02/25 07:35 05/02/25 07:35 05/02/25 07:35
Review of Systems
-
History Source: Patient
All other systems: Reviewed and negative
Physical Exam
-
General: Well Developed, Well Nourished and No Apparent Distress
Neuro: Awake, Alert, Oriented and AO x 3
Psych: Calm
--- NOTE | 2025-05-02 09:47 | W.DCSUMMARY ---
Discharge Summary
Discharge Data
Date of Admission: 05/02/25
Date of Discharge: 05/02/25
-
Pending Results: No
Hospital Course
44yo F with PMHX of HTN in young age, daily headaches, ocular migraine, gastric bypass came back after earlier discharge due to recurrence of R lower face tingling lasted for up to 5 min. Already planned for outpatient cardiology appt for possible
cardiac MRI to make a desision if PFO significant enough to be clised and for golf ball inspector Hoslter. Also started on new antihypertensives. Sen by NEurologist- no change in mgmt. COnt same ASA, statin indefinitely and Plavix. To continue working on
better BP control, but since just recent (11 day ago) addition of 2 new medications - no clear indication for need in uptitration. Reviewed Lyme serology - negative. As agreed with neurologist - medically stable for d/c home
I have spent at least 86min reviewing chart, test results, communication with consultants, family and providing direct patient care
Patient was managed for:
#Recent Acute CVA with persistent recurrent paresthesia
#PFO
#EssentiaL HTN
#Anxiety d/o
#Obesity BMI 33.0%
#Ocular migraine
Discharge Plan
-
Patient Disposition: Home (Routine Discharge)
Discharge Diagnosis/Procedures: Paresthesia
Condition: Fair
Diet: Low Cholesterol
Activity: As tolerated
Driving Restrictions: As prior to admission
Activity Restrictions/Additional Instructions:
COntinue with same follow up referrals as recommended on the recent discharge
Referrals:
Eulalio Pritchett DO [Family Provider, Family Practice]
Prescriptions:
Continued
duloxetine 30 mg Capsule,Delayed Release(Dr/Ec)
30 mg PO DAILY
therapeutic multivitamin Tablet
1 tab PO DAILY
ibuprofen [Advil] 200 mg Tablet
400 mg PO Q8HPRN PRN (Reason: mild pain)
vitamin B complex Tablet
1 tab PO DAILY
zahyjmohw-HBP-WH-acetaminophen Capsule
1 cap PO HSPRN PRN (Reason: sleep)
cholecalciferol (vitamin D3) [Vitamin D3] 25 mcg (1,000 unit) Tablet
25 mcg PO DAILY
atorvastatin 80 mg Tablet
80 mg PO QPM Qty: 30 0RF
valsartan 80 mg Tablet
80 mg PO DAILY Qty: 30 0RF
amlodipine 2.5 mg Tablet
2.5 mg PO DAILY Qty: 30 0RF
clopidogrel 75 mg Tablet
75 mg PO DAILY Qty: 19 0RF
aspirin 81 mg Tablet,Delayed Release (Dr/Ec)
81 mg PO DAILY Qty: 30 0RF
Discharge Orders:
Discharge Patient (As Directed); Ordered 05/02/25
Ordered By: Juan Robbins
Discharge Date and Time
Print Language: CZECH
--- NOTE | 2025-05-02 10:10 | CM ---
IA completed. LIves with ,mother and 3 children In a 2 story home. Independent in ADLs and AIDLs. BR on 2nd floor. No hx of DME, Home O2, HH. SNF. No insecurities identified, Confirmed PCP, RX, insurance and drug plan.
DR Chatman feels her BP is under control and was DC'd [facility]. Spoke to [facility] liaison, who states she will wait for PT note. IF pt is stable with her BP she will be accepted.
Plan: Discharge to [facility]
--- NOTE | 2025-05-02 10:21 | CM ---
IA completed. LIves with ,mother and 3 children In a 2 story home. Independent in ADLs and AIDLs. BR on 2nd floor. No hx of DME, Home O2, HH. SNF. No insecurities identified, Confirmed PCP, RX, insurance and drug plan.
Pt is discharged
PCP,Eulalio Mon
Rx: [facility]
Plan; DC to home with no needs. will transport
--- NOTE | 2025-05-02 10:49 | CON.NEURO4 ---
Addendum entered and electronically signed by Pranav Jacinto MD 05/02/25 19:12:
I have seen and examined the patient today on 05/02/2025 along with the nurse practitioner Halina Foley, and I agree with the assessment and the management plan of the nurse practitioner Halina Foley. The following is my addendum.
The patient is a 44 years old female who presented to the hospital with complaint of right-sided facial numbness, right-sided facial droop and headache. She was in the hospital and discharged yesterday on 05/01/2025. According to the patient and
her , the patient developed a transient episode lasting about 5 minutes, of right-sided tingling of lower face, last night, prompting her to return to the hospital. The blood pressure on arrival was 146/98. At this time, on 05/02/2025, the
patient reports that she is back to her baseline and she denies any symptoms. The NIHSS is currently 0.
Neurologic examination:
The patient is alert and oriented x 3,
Speech is clear,
The cranial nerves II to XII are grossly intact,
The motor strength is grossly 5/5 bilaterally in the upper and lower extremities,
The sensations are grossly intact,
The cerebellar examination does not show limb ataxia.
The patient presented to the hospital again after being discharged yesterday, due to the tingling of the right lower face that lasted about 5 minutes. The NIHSS is 0 at this time. The patient is going to follow-up with cardiology as an outpatient
for possible cardiac MRI to make a decision if the PFO is significant enough to be closed. The patient has also been started on antihypertensive medications. She will go home on aspirin Plavix and statin. She will also follow-up with her
neurologist in 3 weeks as an outpatient.
I had a detailed with the patient and her regarding the assessment and the management plan, and they verbalized understanding of our discussion.
Discussed with Dr. Juan Robbins.
Original Note:
Consultation - Neurology 4
-
CONSULTING PHYSICIAN: Pranav Jacinto MD
REFERRING PHYSICIAN: Hospitalists/Dr. Suh
DICTATED BY: OSVALDO Sousa
DATE/TIME OF REQUEST: 05/02/25
DATE/TIME OF CONSULTATION: 05/02/25
Reason for Consultation: Recurrent right facial paresthesias
History of Present Illness:
This is a 44-year-old right-handed female who has presented to the hospital on 05/01/25 with report of transient recurrent right facial numbness. Patient was hospitalized at [facility] from 04/29/25-05/01/25 for right facial numbness, right facial
drooping, and right hand fine motor dexterity difficulty and was found to have a left frontal lobe ischemic stroke on MRI brain imaging.
From my previous evaluation on 04/29/25:
'This is a 44-year-old female who has presented to the hospital with report of right facial numbness, right facial drooping, and headache. Patient reports that she was on duloxetine for about a year and about three weeks ago she started weaning off
of it. This morning (04/29/25), she reports feeling in her usual state but did feel mildly dizzy. Around 1040 she notes that the right side of her mouth started tingling and her right mouth appeared droopy, prompting her to come to the ER for
evaluation. Blood pressure on arrival was 165/100. CT head and CTA head/neck were obtained on arrival and are negative for any acute abnormalities. NIHSS is 2 for mild right mouth drooping and R facial paresthesias. She is not a candidate for
TNK/IAT due to low NIHSS, no LVO. She reports having a 6/10 headache on the top of her head radiating down the back of her head. She denies nausea and photo/phonophobia. She reports a significant history of migraine headaches associated with visual
aura, but her current headache does not feel like her typical headache. She denies any stroke symptoms with her previous headaches. She is not taking any estrogen supplements or hormonal control.'
She was discharged home yesterday (05/01/25) and reports that she had been feeling good. Last night, she reports a transient 3-4 minute period of right-sided facial numbness, prompting her to return to the hospital. Blood pressure on arrival was
146/98. Currently (05/02/25), she report feeling back to her previous baseline. She denies any headache, dizziness, vision changes, speech/swallow difficulty, and numbness. She notes ongoing slight fine motor dexterity issue in her right hand. NIHSS
is currently 0.
Past Medical History: Left frontal lobe ischemic stroke 04/2025, migraine with aura, iron deficiency anemia, preeclampsia, anxiety
Surgical History: Gastric bypass, breast implants, hernia repair, eye surgery.
Family History: Grandmother- stroke in an older decade of life.
Social History: Denies tobacco, alcohol, and illicit drug use.
Allergies: Penicillins, vancomycin.
Home Medications: See below.
Review of Symptoms:
Patient denies any fever, headache, chest pain, shortness of breath, GI or symptoms.
�Per the HPI.�All systems are reviewed negative except above.
Physical Exam:
The patient is afebrile, abdomen is nondistended, breathing is unlabored, skin is warm and dry, no edema.
NIH Stroke Scale:
I performed the NIH stroke scale on the patient on 05/02/25 at 0845. The patient scored 0 points on the NIH stroke scale assessment, which were assigned as follows: See below.
Neurologic Examination:
The patient is awake, alert and oriented x 3. She is able to follow commands and answer questions appropriately. There is no aphasia or dysarthria. On cranial nerve assessment, pupils are 3 mm bilateral, round and reactive to light and
accommodation. Visual abel are full. Extraocular movements are intact. Facial sensations are intact and bilaterally symmetrical, there is no facial asymmetry. Hearing is intact bilaterally to normal conversation volume. Tongue palate and uvula are
midline. Sternocleidomastoid strengths are full bilaterally. Motor strengths are 5/5 bilateral upper and lower extremities on medical research [place] scale. There is no drift or involuntary movement noted. There was no extinction noted on double
simultaneous stimulation. Coordination is intact by finger to nose bilaterally.
Lab Results: See below.
Neuro Imaging:
-CT Head 04/29/25: No acute intracranial abnormality. ASPECT score: 10.
-CTA head/neck 04/29/25: No demonstrable carotid arterial atherosclerosis/stenosis bilaterally. No findings to suggest internal carotid artery or vertebral artery dissection bilaterally. Vertebral arteries are approximately codominant. No findings
to suggest proximal intracranial arterial stenosis or vessel cut off bilaterally.
-MRI brain 04/29/25: 1.4 cm ACUTE ISCHEMIC INFARCT in the posterior cortical bates matter of the LEFT FRONTAL LOBE. Mild white matter disease in the parietal lobes and minimal white matter disease in the frontal lobes which is most likely white
matter leukoaraiosis or the sequela of migraine headaches. Vasculitis, connective tissue disease, Lyme disease, or demyelinating disease are less likely diagnostic possibilities.
-TTE 04/30/25: Positive bubble study for right to left shunting at the level of the fossa ovalis consistent with PFO.
-TTE 05/01/25: Official report pending. Per Cardiology Dr. Arce, no evidence of PFO by DANISH.
Differentials for the patient's presentation include:
1. Recrudescence of stroke symptoms, possibly due to a transient increase in blood pressure.
2. Recent left frontal lobe ischemic stroke.
Patient has the following risk factors for their symptoms: Recent stroke, HTN
IV Tenecteplase/IAT candidacy: Not a candidate due to NIHSS 0, symptoms compatible with recent stroke symptoms.
Recommendations consistent with previous evaluation:
-Continue DAPT with aspirin 81mg and clopidogrel 75mg daily for 21 days. After 21 days, discontinue clopidogrel and continue aspirin 81mg daily, indefinitely.
-Goal normotension.
-No indication for PFO closure at this point. Follow-up with Cardiology for repeat echo vs cardiac MRI imaging in about 3-6 months to re-evaluate for PFO.
-Outpatient Holter monitor per Cardiology.
-Hypercoagulable labs pending, follow-up with your outpatient portable machine cutter Dr. Mora.
-LDL goal <70. LDL is 100. Continue newly initiated atorvastatin 80mg daily.
-Goal normoglycemia, hbA1c is 5.4.
-Avoid estrogen containing products/hormonal control as this has an association with a slight increased risk of stroke in patient's with migraine with aura.
-NIHSS and neurological checks per unit guidelines.
-Provide patient/family with a stroke education packet.
-PT/OT/ST evaluations.
-DVT prophylaxis.
-Follow-up with Neurology as an outpatient.
Discussed patient care with: Dr. Jacinto, the patient, patient's spouse
Vital Signs and Labs
-
Vital Signs and Labs:
Vital Signs
Temp Pulse Resp BP Pulse Ox
97.9 F 81 16 121/77 97
05/02/25 07:35 05/02/25 07:35 05/02/25 07:35 05/02/25 07:35 05/02/25 07:35
Lab Results
05/01/25 23:28
05/01/25 23:28
PT 12.9 Sec (11.4-14.6) 05/01/25 23:28
INR 0.92 05/01/25 23:28
APTT 29.1 Sec (23.4-35.0) 05/01/25 23:28
Sodium 135 mmol/L (135-145) 05/01/25 23:28
Potassium 4.1 mmol/L (3.5-5.1) 05/01/25 23:28
BUN 16 mg/dl (7-17) 05/01/25 23:28
Glucose 105 mg/dl (70-99) H 05/01/25 23:28
Calcium 9.7 mg/dl (8.4-10.2) 05/01/25 23:28
Medications
-
Active Medications
Generic Name Dose Route Start Last Admin
Trade Name Freq PRN Reason Stop Dose Admin
Acetaminophen 650 mg 05/02/25 04:01
Acetaminophen 325 Mg Tablet PO 05/30/25 04:00
Q4HPRN PRN
Mild Pain / Temp > 101
Amlodipine Besylate 2.5 mg 05/02/25 08:00 05/02/25 08:42
Amlodipine 2.5 Mg Tablet PO 05/30/25 07:59 2.5 mg
DAILY JAVON Administration
Aspirin 81 mg 05/02/25 08:00 05/02/25 08:42
Aspirin 81 Mg (Enteric Coated) Tablet PO 05/30/25 07:59 81 mg
DAILY JAVON Administration
Atorvastatin Calcium 80 mg 05/02/25 18:00
Atorvastatin (Lipitor) 80 Mg Tablet PO 05/30/25 17:59
QPM JAVON
Clopidogrel Bisulfate 75 mg 05/02/25 08:00 05/02/25 08:42
Clopidogrel 75 Mg Tablet PO 05/30/25 07:59 75 mg
DAILY JAVON Administration
Duloxetine HCl 30 mg 05/02/25 08:00 05/02/25 08:42
Duloxetine Delayed Release 30 Mg Capsule PO 05/30/25 07:59 30 mg
DAILY JAVON Administration
Enoxaparin Sodium 40 mg 05/02/25 18:00
Enoxaparin Sodium 40 Mg/0.4 Ml Syringe SC 05/30/25 17:59
QPM JAVON
Sodium Chloride 0 flush 05/02/25 05:00
Sodium Chloride 0.9% (Flush) Syringe IV 05/30/25 04:59
PER PROTOCOL JAVON
Valsartan 80 mg 05/02/25 08:00 05/02/25 08:42
Valsartan 80 Mg Tablet PO 05/30/25 07:59 80 mg
DAILY JAVON Administration
Home Medications
�Medication �Instructions �Recorded
cholecalciferol (vitamin D3) 25 25 mcg PO DAILY Supplement 04/29/25
mcg (1,000 unit) tablet (Vitamin
D3)
jfmgdhpjus-ysatrrejmzucrkx-fppdbuxmspapfogh-acetaminophen 1 cap PO HSPRN PRN sleep 04/29/25
capsule
duloxetine 30 mg capsule,delayed 30 mg PO DAILY Mental 04/29/25
release Health/Anxiety
ibuprofen 200 mg tablet (Advil) 400 mg PO Q8HPRN PRN mild pain 04/29/25
therapeutic multivitamin 1 tab PO DAILY Supplement 04/29/25
vitamin B complex 1 tab PO DAILY Supplement 04/29/25
amlodipine 2.5 mg tablet 2.5 mg PO DAILY #30 tabs 05/01/25
aspirin 81 mg tablet,delayed 81 mg PO DAILY #30 tabs 05/01/25
release
atorvastatin 80 mg tablet 80 mg PO QPM #30 tabs 05/01/25
clopidogrel 75 mg tablet 75 mg PO DAILY #19 tabs 05/01/25
valsartan 80 mg tablet 80 mg PO DAILY #30 tabs 05/01/25
NIH Stroke Score
Subsequent NIH Scale
Date of Subsequent NIH Scale: 05/02/25
Time of Subsequent NIH Scale: 08:45
NIH Stroke Score
Level of Consciousness: 0 - Alert
LOC Questions: 0-Answers both correctly
LOC Commands: 0-Performs both correctly
Best Horizontal Gaze: 0-Normal
Visual Abel: 0=Normal, no visual loss
Facial Palsy: 0=Normal, symmetrical
Motor - Right Arm: 0=No drift 10 seconds
Motor - Left Arm: 0=No drift 10 seconds
Motor - Right Le-No drift 5 seconds
Motor - Left Le-No drift 5 seconds
Limb Ataxia: 0-Absent
Sensation: 0-Normal
Best Language: 0-No aphasia
Dysarthria: 0-Normal
Extinction and Inattention: 0-No abnormality
NIH Total Score:: 0
Modified [place] (mRS) Score
Modified [place] Scale (mRS): No significant disability. Able to carry out usual activities.
Score: 1
Alteplase Contraindication
Inclusion and Exclusion criteria reviewed: Yes
IAT Contraindications: NIHSS < 6
== END 2025-05-02 13:09 | disposition home or self-care (01) ==
LOC: 4 EAST ACU 03:22
PROVIDERS: Student in an Organized Health Care Education/Training Program; ADMITTING PHYSICIAN Hospitalist; ATTENDING PHYSICIAN Internal Medicine; CONSULT PHYSICIAN Psychiatry & Neurology Neurology; EMERGENCY PHYSICIAN Emergency Medicine; FAMILY PHYSICIAN Family Medicine
DX: R20.2 Paresthesia of skin (principal); I10 Essential (primary) hypertension; R20.1 Hypoesthesia of skin; D50.9 Iron deficiency anemia, unspecified; R53.1 Weakness; E66.9 Obesity, unspecified; F41.9 Anxiety disorder, unspecified; R29.810 Facial weakness; G43.109 Migraine with aura, not intractable, without status migrainosus; Z68.33 Body mass index [BMI] 33.0-33.9, adult; Z98.82 Breast implant status; Z98.84 Bariatric surgery status; Z82.49 Family history of ischemic heart disease and other diseases of the circulatory system; Z88.1 Allergy status to other antibiotic agents; Z88.8 Allergy status to other drugs, medicaments and biological substances; Z88.0 Allergy status to penicillin; Z79.82 Long term (current) use of aspirin; Z79.02 Long term (current) use of antithrombotics/antiplatelets; Z86.73 Personal history of transient ischemic attack (TIA), and cerebral infarction without residual deficits; Z82.3 Family history of stroke
CPT/HCPCS: 80053; 84484; 85025; 85610; 85730; 93005; 99285; G0378